=== PATIENT | male | born 1990 | race Caucasian/White ===

== ENCOUNTER 2018-06-10 03:37 | Emergency (ER) | payer MEDICAID, SELFPAY ==
[2018-06-10 03:38] VITALS: BP 155/96; PULSE 80; RESP 16; TEMP 36.2; O2SAT 99; BMI 24.3
--- NOTE | 2018-06-10 03:53 | ED.DCSUM_ITS ---
- ER Visit Summary Date of Service: 06/10/18 Chief Complaint: Sinus headache History of Present Illness: The patient is a 28 M with a sinus headache. This has been going on for several days. He has been taking Augmentin, prednisone, and promethazine with minimal relief. He completed the prednisone. He c ontinues to have congestion, headache, decreased hearing, and trouble concentrating. Denies fevers, vision changes, facial droop, neck rigidity, trouble swallowing, trouble talking, trouble breathing. Patient has also been taking ibuprofen with no relief. He also has a history of bipolar disorder and takes Seroquel, Lamictal, and BuSpar. Denies suicidal or homicidal thoughts. He is staying in a hotel currently. Physical Examination: Afebrile and vital signs are unremarkable. Patient appears nontoxic and in no acute distress. HEENT exam unremarkable except he does have a considerable amount of cerumen bilaterally. Ears otherwise unremarkable. Nontender. No lymphadenopathy. No meningeal signs. Good range of motion. Neck nontender. Heart regular rate and rhythm. Lungs clear. Abdomen soft. Moves all extremities. Cranial nerves grossly intact. Normal gait. No ataxia. GCS 15. Skin normal in color without rash, diaphoresis, or pallor. Test Results: None indicated based on his symptoms and exam. Emergency Department Course and Treatment: Patient treated with José-Synephrine nasal spray and Decadron. Will continue Augmentin. Also continue ibuprofen. He was given a meal and he was given Gatorade. He did advise me that if he did not get better, that he would lili me. I advised him that I hope he feels better, but that is his prerogative, and that will not change his level of care. Follow-up with primary care for recheck. Return for any new or worsening issues. Treatment Plan: As above Disposition: Discharge Impression: 1. Sinus headache This note was generated with [employer] dictation software. It may contain incorrect words, spelling, and punctuation that were not noted in review of the chart prior to signing ED Disposition - Plan for ED Patient: Chief Complaint: General Illness Instructions: ED Headache Sinus Referrals: NOT,DEFINED [NON-STAFF] -
--- NOTE | 2018-06-10 03:53 | ED.DEP ---
ED Disposition - Plan for ED Patient: Chief Complaint: General Illness Instructions: ED Headache Sinus Referrals: NOT,DEFINED [Primary Care Provider] -
[2018-06-10] MEDS: Phenylephrine 0.25% 15 ML NASAL.SRY 2 SPRAY NASAL (04:12)
== END 2018-06-10 04:27 | disposition home or self-care (01) ==
PROVIDERS: Emergency Provider Emergency Medicine
DX: R51 Headache (principal); H61.23 Impacted cerumen, bilateral; F31.9 Bipolar disorder, unspecified; Z72.0 Tobacco use; Z79.899 Other long term (current) drug therapy
CPT/HCPCS: 99284

== ENCOUNTER 2018-06-23 02:06 | Emergency (ER) | payer MEDICAID, SELFPAY ==
[2018-06-23 02:07] VITALS: BP 135/82; PULSE 125; RESP 24; TEMP 37.2; O2SAT 97; BMI 23.3
--- NOTE | 2018-06-23 02:29 | ED.DCSUM_ITS ---
History of Present Illness Chief Complaint: Chest Other Informant: Patient Onset: Hours - several Context: Sudden Onset - w/ coughing very hard Timing: Continuous Quality: ache/pain, like a pulled muscle Location: left lateral - anterior ribcage Current Severity: Severe Maximum Severity: Severe Worsened by: palpation, coughing Relieved by: breathing easy Associated Symptoms: cough, mucous congestion, ears popping x 2 mos Narrative: Patient states he is living on the [address] and has had an upper respiratory infection for the past 2 months. No shortness of breath until tonight when he coughed very hard and felt like he pulled a muscle in his left rib cage, making it harder to breathe, but no true dyspnea. Occasionally gets some mild pleuritic discomfort in his right upper lung. No leg pain or swelling, immobilization, recent long travel, history of DVT or PE. Past Medical History - Allergies and Home Meds Allergies/Adverse Reactions: Allergies No Known Allergies Allergy (Verified 06/10/18 03:38) Primary Care Physician: Care Physician,No Primary [Primary Care Provider] - Past Medical History: None Smoking Status: Current every day smoker Review of Systems General: Denies: Chills, Fever Eyes: Denies: Visual changes - bilaterally, Diplopia ENT: Reports: Bilateral ear pain - Intermittently, Rhinorrhea. Denies: Sore throat Cardiovascular: Reports: Chest pain Respiratory: Reports: Cough, Sputum - Was green, now alegria Gastrointestinal: Denies: Abdominal pain, Nausea, Vomiting Musculoskeletal: Denies: Swelling, Extremity Pain Skin: Denies: Rash, Wounds Physical Exam Vital Signs/Narrative: Vital Signs Temp Pulse Resp BP Pulse Ox 06/23/18 02:07 99.0 F 125 H 24 H 135/82 H 97 Inital Vital Signs reviewed: Yes General: Well nourished, Well developed, - - Well-appearing, NAD. Conversational in full sentences. Head: Normocephalic, Atraumatic Eyes: Perrl, EOMI ENT: Moist mucous membranes, No rhinorrhea, TM's clear - Hard cerumen obscures most of TMs bilaterally. EACs normal bilaterally otherwise., - - Posterior oropharynx erythematous, otherwise normal. Negative for: Sinus tenderness Neck: Supple, Nontender, No lymphadenopathy Cardiovascular: Regular rate, Regular rhythm, No murmurs. Negative for: Tach ycardia - On my exam although tachycardic in triage Respiratory: No distress, CTA bilaterally, Chest tenderness - Left anterolateral lower rib cage. No crepitance or subcutaneous emphysema or evidence of trauma Abdomen: Soft, Nontender, Nondistended, Normal bowel sounds Extremities: Nontender, No edema Skin: Normal color, No rash Neurological: Alert, Oriented x3, Cranial nerves II-XII grossly intact, Normal Strength, Normal Sensation Psychological: Normal affect Diagnostic/Tx/Re-eval - Medical Decision Making Lungs are clear, not hypoxic I do not think he needs a chest x-ray. I think giv en 2 months of symptoms it is reasonable to treat him with a broad-spectrum antibiotic. Prescribed doxycycline and given an injection of Toradol here for his musculoskeletal chest wall pain. He is comfortable with that plan. ED Disposition - Plan for ED Patient: Disposition: Home or Assisted Living Chief Complaint: Chest Other Diagnosis: Acute bronchitis with bronchospasm, Muscle strain of chest wall Instructions: ED Strain Chest Wall, Acute Bronchitis Prescriptions: Doxycycline 100 mg PO BID #20 cap Referrals: Ana Christianson [NON-STAFF] - 1 Week if not improving
[2018-06-23] MEDS: Ketorolac 60 MG/2 ML Vial IM (02:30)
[2018-06-23 03:04] VITALS: PULSE 117; O2SAT 97
--- OUTSIDE RECORDS SUMMARY | 2018-08-16 02:21 | XMS RPT_ITS ---
:1990 Author Organization [place] Care Team Providers Name Role Phone Call, On Primary Care Unavailable Allison Rosas Attending Unavailable Call, On Primary Care Unavailable Dr. Bhavin Lozano Attending Unavailable PROVIDER, UNKNOWN Referring Unavailable No, PCP Primary Care Unavailable PROVIDER, UNKNOWN Attending Unavailable Blaise Olvera Attending Unavailable Primay Care Physicia, No Primary Care Unavailable Primay Care Physicia, No Primary Care Unavailable JIGNA CLARK Attending Unavailable Primay Care Physicia, No Primary Care Unavailable Gregorio Vance Attending Unavailable PROBLEMS PROBLEMS DATE TYPE CONDITION / CODE ATTENDING STATUS SOURCE 10/07/2017 Admitting Pain in right knee Unknown Active [facility] Diagnosis / M25.561(ICD-10) System Repository 10/07/2017 Admitting Other and Unknown Active [facility] Diagnosis unspecified System ovrexrtn or strnous Repository move/pstr, init / X50.9XXA(ICD-10) 10/07/2017 Admitting Nicotine Unknown Active [facility] Diagnosis dependence, System unspecified, Repository uncomplicated / F17.200(ICD-10) 10/07/2017 Admitting Pain in unspecified Unknown Active [facility] Diagnosis knee / System M25.569(ICD-10) Repository PROCEDURES PROCEDURES No Procedure Records FoundRESULTS RESULTS ED.PDOC Observed: 07/09/2018 Status: F Source: [place] 12:46 AM [facility] REPOSITORY JEFFREY ASIF II Male [id number] Attending provider: IMCHAEL HIDALGO ER [id number] Bhavin Lozano 1990 28 DOS: 07/09/18 Hx/Exam - History of Present Illness Chief Complaint: CHEST PAIN Symptom Duration: Month(s) (-) Intensity: mild-moderate Episode Frequency: intermittant Episode Duration: Few seconds Radiations: none Symptoms Improve with: staying still Symptoms Worse with: lifting or moving Additional Comments: Patient states that he has been having pain in the left side of his check stool shoulder and neck area for about a year. It comes and goes. It usually last for a few seconds to maybe a minute. It is not associated with dyspnea coughing diaphoresis nausea or vomiting. He was recently diagnosed with bronchitis about 2 months ago. He was treated with doxycycline. No x-ray was done then. Patient states that motion lifting or pulling things does bother it. Exertion does not. He has no family history of heart disease or end DVT or P. He does have a family history of cancer. This patient has now been losing weight. He has no night sweats. There is no exertional component. He has had no travel, surgeries, immobilization or personal history of DVT. He has no leg pain or swelling and no arm pain or swelling. He has been evaluated before for this. He was most recently evaluated here with negative chest x-ray EKG and blood work including Troponin. He states he is here because it is making nervous at this had been going on for so long. He also states that he is currently homeless and he would like something to eat. - Review of Systems Constitutional: Denies: Fever, Chills Eyes: Denies: Blurred Vision, Double Vision ENT: Denies: Nose Congestion, Mouth Pain Respiratory: Denies: Cough, Shortness of Breath, Hemoptysis, SOB with Excertion, Pleuritic Pain, Sputum, Wheezing Cardiovascular: Chest Pain. Denies: Palpitations, Light Headedness Gastrointestinal: Denies: Nausea, Vomiting, Abdominal Pain, Diarrhea Musculoskeletal: Neck Pain, Shoulder Pain. Denies: Back Pain Skin: Denies: Rash Neurological: Denies: Headache, Weakness, Numbness, Incoordination, Change in Speech, Confusion, Seizures Psychiatric: Anxiety - Past Medical History General History: Yes Anxiety, Yes Depression (clinical), Yes Mental Disorder (donte, anxiety d/o), Yes Migraine - Past Surgical History Surgical History: Yes Other (left thumb) - Social History Smoking Status: Current every day smoker (Counseled on the need to quit.) Hx Alcohol Use: Yes Living Conditions: Unknown - Physical Exam General Appearance: awake, alert, no apparent distress (Patient actually resting quietly on its right side sleeping when I walk in the room. He was easily aroused.) Eyes: conjunctivae clear Head, Ears, Nose, and Throat: pharynx normal, mucous membranes moist Neck: supple, no stridor, no masses, no bony tenderness, full ROM, other (Patient does have slight tenderness to the trapezius that lateral right base of the neck. However there are no skin changes or swelling.) Respiratory: lungs clear, no wheezes/rhonchi/rales, no respiratory distress, no accessory muscle use , chest wall tender, other (There is no pain with a deep breath. His lungs are completely clear. He does have a little chest wall tenderness but it is isolated to the mid lateral clavicular area on the right. It is really just below the clavicle or the pectoralis Major muscles it is tach. There is no swelling, mass or skin changes noted.) Cardiovascular: regular rate, rhythm, no murmur, no gallop, no rub, no JVD Abdomen/GI: non tender, soft, non-distended Back: no CVA tenderness, no vertebral tenderness Extremity: normal range of motion, non-tender, normal inspection, no pedal edema, no calf tenderness (There were no cords or edema. There is no tenderness in the arm. There is no distended veins. Peripheral pulses are normal. There is no asymmetry of arms or legs.) Neurologic: normal strength, normal sensation, no pronator drift, speech clear/fluent Psychiatric: oriented x3, anxious, other (When the patient is woken up he does appear to be anxious. He speaks very quickly. He is slightly pressured speech. He does frequently interrupt. He also changed the topics such as asking for food while we are in the middle of a conversation. He is not suicidal or homicidal. There is no indication of acute psychosis.) Skin Exam: warm/dry, normal color Lymphatic: no adenopathy EKG - EKG EKG Interpretation: Preliminary ED Interpretation (EKG shows a sinus rhythm with a rate of 97. There is no ectopy. There is no sign of acute STT change consistent with infarct or ischemia. There is nonspecific J point elevation in lead V2 which is new. WI interval, QR quaker, QTs here normal. EKG shows no marked changes from the EKG dated 07/04/2018.) Discharge Screen - Discharge Discharge Problem: Atypical chest pain Disposition: HOME/SELF CARE Condition: Good Prescriptions: Cyclobenzaprine [Flexeril] 1 tab PO TID #12 tab Naproxen [Naprosyn] 1 tab PO Q12H PRN PRN #10 tab PRN Reason: Referrals: Call,On [Primary Care Provider] - Iggy Glover [Family Provider] - <Electronically signed by Bhavin Lozano > Dictated By: Dr. Bhavin Lozano M.D. Dictated Date/Time:07/09/18 0046 Electronically Signed Date/Time: 07/09/18 0522 URINALYSIS Collected: 07/04/2018 Status: F Source: [place] 5:11 AM [facility] REPOSITORY Order Comment: What Is Urine Source? Clean Catch [place] TYPE CODE TESTS RESULT OUT OF REFERENCE UNITS RANGE LAB UCOL URINE COLOR Lt. Yellow LAB UAPP CLEAR URINE APPEARANCE Clear LAB UGL NEGATIVE URINE GLUCOSE -DIPSTICK Negative LAB UBIL NEGATIVE URINE BILIRUBIN - Negative DIPSTICK LAB UKET NEGATIVE URINE KETONE Negative LAB USG 1.003-1.035 URINE SPEC Normal GRAVITY, DIPSTICK <= 1.005 LAB UBL NEGATIVE URINE BLOOD Negative LAB UPH 5.0-9.0 URINE PH Normal 7.5 LAB UPRO NEGATIVE URINE PROTEIN - Negative DIPSTICK LAB UURO <=1.0 E.U./dL URINE UROBILINOGEN - 0.2 DIPSTICK LAB UNIT NEGATIVE URINE NITRITE - Negative DIPSTICK LAB ULE NEGATIVE URINE LEUK ESTERASE Negative Performed By: #### UA #### [address] [address] CHEST-2 VIEW Observed: 07/04/2018 Status: F Source: [place] 5:04 AM [facility] REPOSITORY JEFFREY ASIF II Male [id number] Ordering physician: Allison Rosas LOC:ER [id number] Attending physician: 1990 28 DOS: 07/04/18 Acc#: [id number] Exam/Proc: CHEST-2 VIEW Dept: RADIOLOGY INDICATION: Central back pain right arm pain, No additional HX received. TECHNIQUE: Frontal and lateral chest. COMPARISON: None Available. FINDINGS: The cardiomediastinal silhouette is normal in size. There is no consolidation r atelectasis in either lung. There are no pleural effusions. There is no pneumothorax. No acute osseous process. IMPRESSION: No acute pulmonary abnormality. Signed by Jose Elias Camejo MD REPORT SIGNATURE ON FILE Electronically Signed Date/Time: 07/04/18503 Dictated Date/time: 07/04/18503 CC: ED.PDOC Observed: 07/04/2018 Status: F Source: [place] 4:40 AM [facility] REPOSITORY JEFFREY ASIF II Male [id number] Attending provider: [facility] ER [id number] Allison Rosas 1990 DOS: 07/04/18 Hx/Exam - History of Present Illness Chief Complaint: CHEST PAIN Location: right upper Symptom Duration: Month(s) Intensity: mild-moderate Episode Frequency: intermittant Symptoms Improve with: none Symptoms Worse with: cough, movement Assoc Sxs/Pertinent Hx: recent bronchitits, on doxycycline - Review of Systems All Other Systems: Pertinent Positives in HPI, All Other Systems Negative Constitutional: Denies: Fever Respiratory: Cough, Dry. Denies: Shortness of Breath, Wheezing Cardiovascular: Chest Pain Neurological: Denies: Headache, Weakness - Past Medical History General History: Yes ADHD, Yes Anxiety, Yes Depression (clinical), Yes Mental Disorder (donte, anxiety d/o), Yes Migraine - Past Surgical History Surgical History: Yes Other (left thumb) - Social History Smoking Status: Current every day smoker Hx Alcohol Use: Yes Living Conditions: Friends - Physical Exam General Appearance: awake, alert, no apparent distress Eyes: PERRL, EOMI, conjunctivae clear Head, Ears, Nose, and Throat: mucous membranes moist Neck: supple, non-tender Respiratory: lungs clear, no wheezes/rhonchi/rales, no respiratory distress Cardiovascular: regular rate, rhythm Abdomen/GI: non tender, soft, non-distended Extremity: normal range of motion, other (tender right upper back, right shoulder, right upper chest ) Neurologic: no motor/sensory deficits, normal gait, normal strength Psychiatric: oriented x3, anxious Skin Exam: warm/dry - Source of History Source of History: Nursing Notes/Vital Signs/Triage Reviewed and Agree, Additional Hx from Relatives , Old Medical Records Reviewed Note(s) - Physician Notes Additional Notes, See Orders for Details: 07/04/18 05:46 Chest x-ray and labs are unremarkable. Patient is slightly tachycardic around 110 being very anxious and agitated. I believe that a craze relate this. His pain has been going on since August on and . I do not believe there is anything cardiac or pulmonary. EKG - EKG EKG Interpretation: Preliminary ED Interpretation (sinus rate 112) Discharge Screen - Discharge Discharge Problem: Atypical chest pain Disposition: HOME/SELF CARE Condition: Good Instructions: DI for Atypical Chest Pain Referrals: Call,On [Primary Care Provider] - Ana Lozano [ACTIVE] - <Electronically signed by Allison Rosas > Dictated By: Dr. Allison Rosas Dictated Date/Time:07/04/18 0440 Electronically Signed Date/Time: 07/04/18 0548 COMPREHENSIVE METABOLIC Collected: 07/04/2018 Status: F Source: [place] PANEL 4:30 AM [facility] REPOSITORY TYPE CODE TESTS RESULT OUT OF REFERENCE UNITS RANGE LAB GLU 70-100 mg/dL GLUCOSE Normal 96 LAB BUN 7-18 mg/dL BUN Normal 11.0 LAB CRE 0.4-1.2 mg/dL CREATININE Normal 0.90 LAB NA 136-147 MMOL/L SODIUM Normal 137 LAB K 3.6-5.2 MMOL/L Low POTASSIUM 3.3 LAB CL 98-107 MMOL/L CHLORIDE Normal 102 LAB CO2 21-32 MMOL/L CARBON Normal DIOXIDE 25.0 LAB GAP 11-23 ANION GAP Normal 12.8 LAB KIA 8.5-10.1 mg/dL CALCIUM Normal 9.0 LAB TP 6.0-8.3 g/dL TOTAL Normal PROTEIN 8.3 LAB ALB 3.0-5.0 g/dL ALBUMIN Normal 3.9 LAB GLOB 2.5-4.6 g/dl GLOBULIN Normal 4.4 LAB A/G 1.1-1.8 Low ALB/GLOB RATIO 0.9 LAB TBIL 0-1.0 mg/dL Normal BILIRUBIN,TOTAL 0.3 LAB SGOT 9-34 U/L SGOT/AST Normal 22 LAB SGPT 12-78 U/L SGPT/ALT Normal 41 LAB ALK 45-117 U/L ALK Normal PHOSPHATASE 96 LAB GFR mL/min GFR > 60.0 LAB GFRAA mL/min GFR AM > 60.0 Result Comment: THE NORMAL LEVEL OF GFR VARIES ACCORDING TO AGE, SEX, AND BODY SIZE. A GFR LEVEL OF LESS THAN 60 ML/MIN REPRESENTS LOSS OF THE ADULT LEVEL OF NORMAL KIDNEY FUNCTION. Performed By: #### TONEY GAONA #### [address] [address] TROPONIN Collected: 07/04/2018 Status: F Source: [place] 4:30 AM [facility] REPOSITORY TYPE CODE TESTS RESULT OUT OF RANGE REFERENCE UNITS LAB TRO 0-0.1 ng/mL Normal TROPONIN < 0.015 Result Comment: Troponin Reference Range 0.0 - 0.045 ng/ml Negative 0.046 - 0.1 ng/ml Intermediate Risk 0.11 - 0.59 ng/ml High Risk Greater than or equal to 0.6 ng/ml - Indicative of Myocardial Damage Performed By: #### [place], [place] #### [address] [address] CBC WITH AUTO DIFF Collected: 07/04/2018 Status: F Source: [place] 4:30 AM [facility] REPOSITORY TYPE CODE TESTS RESULT OUT OF RANGE REFERENCE UNITS LAB WBC 4.0-11.0 K/uL High WHITE BLOOD COUNT 14.0 LAB RBC 4.40-6.30 M/uL RED BLOOD Normal COUNT 6.07 LAB HGB 14.0-18.0 g/dL HEMOGLOBIN Normal 15.4 LAB HCT 41.0-53.0 % HEMATOCRIT 46.7 LAB MCV 80-97 fL Low MEAN CELL VOLUME 76.9 LAB MCH 26.0-32.0 pg Low MEAN CORPUSCULAR HGB 25.3 LAB MCHC 31.0-36.0 g/dL MEAN Normal CORPUSCULAR HGB 32.9 CONC LAB RDW 11.0-15.5 % RED CELL Normal DISTRI WIDTH 13.7 LAB PLT 140-450 K/uL High PLATELET COUNT 462 LAB MPV 6.4-10.5 fl MEAN Normal PLATELET VOLUME 7.4 LAB GR% 42-80 % GRAN % Normal 64.5 LAB LY% 16-48 % LYMPH % Normal 26.3 LAB MO% 3-9 % MONO % Normal 8.0 LAB EO% 0-8 % EOS % Normal 0.7 LAB BASO% 0-2 % BAS0 % Normal 0.50 LAB GR# 2.2-9.1 K/uL GRAN # Normal 9.0 LAB LY# 1.0-4.0 K/uL LYMPH # Normal 3.7 LAB MO# 0.1-1.7 K/uL MONO # Normal 1.1 LAB EO# 0.0-1.80 K/uL EOS # Normal 0.1 LAB BA# 0-0.1 K/ul BASO # Normal 0.1 Performed By: #### DIFF (MANUAL), CBC #### [place] [address] [address] DIFFERENTIAL Collected: 07/04/2018 Status: F Source: [place] 4:30 AM [facility] REPOSITORY TYPE CODE TESTS RESULT OUT OF REFERENCE UNITS RANGE LAB TCC #CELLS TOTAL 100 CELLS COUNTED LAB POLY 42-80 % 56 Normal NEUTROPHILS LAB LYMPH 16-48 % LYMPH 35 Normal LAB MON 3-9 % MONOCYTE 6 Normal LAB EOS 0-8 % 3 Normal EOSINOPHIL LAB RM RBC MORPHOLOGY ESSENTIALLY NORMAL LAB TOX TOXIC SLIGHT GRANULATION LAB IG IMMATURE NONE GRANS SEEN Performed By: #### DIFF (MANUAL), CBC #### [place] [address] [place] [address] 12 LEAD ELECTROCARDIOGRAM Observed: 06/27/2018 Status: F Source: [place] 2:29 PM [facility] REPOSITORY [facility] Cardiovascular Services [address] [place] [address] 12 Lead EKG 06/25/18 0347 MR#: [id number] Acct: [id number] Name: JEFFREY ASIF II Rep #: [id number] : 1990 28 From: Hood Pulido MD Attending Dr: Status: DEP ER Ordering Dr: Gregorio Vance MD Date: 06/25/18 Location: ED Sex: M C Admitted: Test Reason : [facility] Blood Pressure : / mmHG Vent. Rate : 103 BPM Atrial Rate : 103 BPM P-R Int : 146 ms QRS Dur : 086 ms QT Int : 332 ms P-R-T Axes : 067 095 059 degrees QTc Int : 434 ms Sinus tachycardia Rightward axis Borderline ECG Confirmed by HOOD PULIDO MD ([id number]), online content editor GARTH DIXON ([id number]) on 06/27/2018 2:29:02 PM Referred By: GABE Confirmed By:HOOD PULIDO MD 06/27/18 1429 Date Hood Pulido MD CC: No Primary Care Physician; Gregorio Vance MD Signed EMERGENCY DEPARTMENT Observed: 06/25/2018 Status: F Source: [place] SUMMARY 4:15 AM [facility] REPOSITORY [facility] Medical Records Department [address] [place] [address] Emergency Department Summary 06/25/18 0413 MR#: [id number] Acct: [id number] Name: JEFFREY ASIF II Rep #: [id number] : 1990 28 From: Gergorio Vance MD PCP: Care Physician, No Primary Status: REG ER - ER Visit Summary Date of Service: 06/25/18 Chief Complaint: Suicidal History of Present Illness: The patient is a 28 M who presents with suicidal ideation. He is homeless. He states that he was previously staying with someone he had met at [facility]. He has also been at the [facility]. He states that due to some problems with them letting him and he is now homeless over the last 3 weeks. He reports multiple stressors. He reports suicidal ideation. He states 2 days ago he had tied a belt around [place] and intended to hang himself but someone talked him out of it. Physical Examination: Afebrile vitals unremarkable No distress Heart regular rate and rhythm Lungs are clear Abdomen soft Patient endorses suicidal ideation Patient has superficial lacerations of the anterior left forearm which are about 8 cm in length x2 Test Results: CBC BMP hepatic function unremarkable. EKG shows normal sinus rhythm. Alcohol normal. Urine drug screen positive for marijuana. Emergency Department Course and Treatment: Patient evaluated by crisis and will be transferred to the [facility]. Treatment Plan: [] Disposition: Transfer Impression: Suicidal ideation This note was generated with [employer] dictation software. It may contain incorrect words, spelling, and punctuation that were not noted in review of the chart prior to signing ED Disposition - Plan for ED Patient: Chief Complaint: Suicidal Referrals: Care Physician,No Primary [Primary Care Provider] - What to do if you have Problems For any increased pain, shortness of breath, bleeding, nausea or vomiting, chest pain, or any unexpected problems, contact your Primary Care Provider. Call [facility] ([phone]) or report to the closest Emergency Room. Call 911 if necessary. 06/25/18 0415 <Electronically signed by Gregorio Vance MD> Date Gregorio Vance MD Cosigner Signature (If Indicated): Date CC: No Primary Care Physician CBC W/DIFF, AUTOMATED Collected: 06/24/2018 Status: F Source: [place] 11:44 PM [facility] REPOSITORY TYPE CODE TESTS RESULT OUT OF RANGE REFERENCE UNITS LAB L100.1000 4.4-11.0 K/mm3 Normal WBC 10.9 LAB L100.1200 4.6-6.2 M/mm3 Normal RBC 5.00 LAB L100.1300 13.0-16.5 g/dl Normal HGB 13.3 LAB L100.1400 40-54 % Low HCT 39.4 LAB L100.1500 80-94 fL Low MCV 78.8 LAB L100.1600 27.0-32.0 pg Low MCH 26.6 LAB L100.1700 32-36 g/gl Normal MCHC 33.8 LAB L100.1810 11.6-14.6 % Normal RDW CV 13.7 LAB L100.1820 35.1-43.9 fl Normal RDW SD 39.0 LAB L100.1900 150-450 K/mm3 Normal PLT 285 LAB L100.2000 6.2-12.0 fl Normal MPV 9.9 LAB L100.2100 47-70 % Normal NEUT% 66.0 LAB L100.2200 19-41 % Low LY% 18.1 LAB L100.2300 0-10 % High MONO% 13.3 LAB L100.2400 0-5 % Normal EO% 1.8 LAB L100.2500 0-1 % Normal BASO% 0.5 LAB L100.2550 0.0-0.9 % Normal IM GRAN % 0.300 Result Comment: IG% - Immature Granulocytes (promyelocytes, myelocytes and metamyelocytes) > 1% indicates that a LEFT SHIFT is Present. LAB L100.2620 2.0-7.7 X10 3/uL Normal Absolute Neut 7.2 LAB L100.2720 0.83-4.51 X10 3/ul Normal Absolute Lymph 1.98 Performed By: #### L100.0100 #### [facility] [address] [place], [address] BASIC METABOLIC Collected: 06/24/2018 Status: F Source: [place] PRO[place] ([facility]) 11:44 PM [facility] REPOSITORY TYPE CODE TESTS RESULT OUT OF RANGE REFERENCE UNITS LAB L501.0100 74-106 mg/dL Normal GLU 81 Result Comment: Please note revised GLUCOSE reference range effective 2017. LAB L501.1000 7-18 mg/dL Normal BUN 12 LAB L501.1100 0.70-1.30 mg/dL Low CREAT,SERUM 0.60 Result Comment: The validity of the calculated GFR AND GFRAA in patients over 70 years has not been determined. Clinical correlation is essential. LAB L501.1110 >60 mL/min Normal EST GFR 167 Result Comment: Non- GFR Calc LAB L501.1115 >60 mL/min Normal EST GFR - AA 202 Result Comment: GFR Calc LAB L501.1255 ml/min Normal Estimated CRCL 180.02 LAB L501.1300 10-20 RATIO BUN/CRE Normal 19.9 LAB L501.2200 8.5-10 mg/dL Low .1 CA 8.4 LAB L501.5300 136-14 mmol/L 5 NA Normal 141 LAB L501.5600 3.5-5. mmol/L 1 K Normal 3.9 LAB L501.5900 98-107 mmol/L High CL 108 LAB L501.6100 21.0-3 mmol/L 2.0 CO2 Normal 27.0 LAB L501.6200 5-15 GAP Normal 6 Performed By: #### L500.2500 #### [facility] [address], [place], [id number] ALCOHOL, BLOOD Collected: 06/24/2018 Status: F Source: [place] (MEDICAL)-SERUM 11:44 PM [facility] REPOSITORY TYPE CODE TESTS RESULT OUT OF RANGE REFERENCE UNITS LAB L501.9100 mg/dL Normal SERUM 40.0 ETOH Result Comment: The serum:whole blood ethanol ratio is approximately 1.14 and varies slightly with hematocrit. Medical Alcohol reference interval and critical value in non-tolerant individuals; 50 - 100 Impairment 100 Intoxication 100 - 250 Severe Poisoning 250 - 400 Deep/possible fatal coma Performed By: #### L501.9100 #### [facility] [address], [place], [id number] LIVER PROFILE Collected: 06/24/2018 Status: F Source: [place] 11:44 PM [facility] REPOSITORY TYPE CODE TESTS RESULT OUT OF RANGE REFERENCE UNITS LAB L501.1500 6.4-8.2 g/dL Normal T PROT 6.7 LAB L501.1800 3.2-5.0 g/dL Low ALB 2.9 LAB L501.1950 2.2-4.2 g/dL Normal GLOB 3.8 LAB L501.4100 15-37 U/L Normal AST 24 LAB L501.4305 45-117 U/L Normal ALK P 61 LAB L501.4405 16-61 U/L Normal ALT 28 LAB L501.4600 0.20-1.00 mg/dL Normal T BILI 0.20 LAB L501.4700 0.00-0.30 mg/dL Normal D BILI 0.09 Performed By: #### L500.3400 #### [facility] [address] [place], [address] URINE DRUG SCREEN Collected: 06/24/2018 Status: F Source: [place] (VISTA) 11:29 PM [facility] TYPE CODE TESTS RESULT OUT OF RANGE REFERENCE UNITS LAB L505.0075 TO BE Normal CONFIRMED Result Comment: CONFIRMATORY TESTING FOR ALL POSITIVE URINE DRUG SCREEN RESULTS WILL ONLY BE SENT OUT UPON PHYSICIAN ORDER. VISTA Urine Drug Screen methods provide only preliminary analytical test results. A more specific alternate chemical method must be used in order to obtain a confirmed analytical result. Gas chromatography/mass spectrometery (GC/MS) is the preferred confirmatory method. Clinical consideration and professional judgement should be applied to any drug of abuse test result, particularly when preliminary positive results are used. URINE TCA TESTING MUST BE ORDERED SEPARATELY. USE TEST MNEMONIC: [facility] LAB L505.5005 VISTA UDS PH 5 Normal LAB L505.5015 <1000 ng/mL AMPHETAMINES Normal NEGATIVE LAB L505.5025 < 200 ng/mL BARBITIURATES Normal NEGATIVE LAB L505.5035 < 200 ng/mL BENZODIAZIPINE Normal NEGATIVE LAB L505.5045 < 300 ng/mL COCAINE Normal NEGATIVE LAB L505.5055 < 500 ng/mL ECSTACY Normal NEGATIVE LAB L505.5065 < 300 ng/mL METHADONE Normal NEGATIVE LAB L505.5075 < 300 ng/mL OPIATES Normal NEGATIVE LAB L505.5085 < 25 ng/mL PCP Normal NEGATIVE LAB L505.5095 < 50 High ng/mL THC POSITIVE Performed By: #### L505.5000 #### [facility] [address] [place], [address] EMERGENCY DEPARTMENT Observed: 06/23/2018 Status: F Source: [place] SUMMARY 2:31 AM [facility] REPOSITORY [facility] Medical Records Department [address] [place] [address] Emergency Department Summary 06/23/18 0225 MR#: [id number] Acct: [id number] Name: JEFFREY ASIF II Rep #: [id number] : 1990 28 From: Jigna Clark MD PCP: Care Physician, No Primary Status: PRE ER History of Present Illness Chief Complaint: Chest Other Informant: Patient Onset: Hours - several Context: Sudden Onset - w/ coughing very hard Timing: Continuous Quality: ache/pain, like a pulled muscle Location: left lateral - anterior ribcage Current Severity: Severe Maximum Severity: Severe Worsened by: palpation, coughing Relieved by: breathing easy Associated Symptoms: cough, mucous congestion, ears popping x 2 mos Narrative: Patient states he is living on the [address] and has had an upper respiratory infection for the past 2 months. No shortness of breath until tonight when he coughed very hard and felt like he pulled a muscle in his left rib cage, making it harder to breathe, but no true dyspnea. Occasionally gets some mild pleuritic discomfort in his right upper lung. No leg pain or swelling, immobilization, recent long travel, history of DVT or PE. Past Medical History - Allergies and Home Meds Allergies/Adverse Reactions: Allergies No Known Allergies Allergy (Verified 06/10/18 03:38) Primary Care Physician: Care Physician,No Primary [Primary Care Provider] - Past Medical History: None Smoking Status: Current every day smoker Review of Systems General: Denies: Chills, Fever Eyes: Denies: Visual changes - bilaterally, Diplopia ENT: Reports: Bilateral ear pain - Intermittently, Rhinorrhea. Denies: Sore throat Cardiovascular: Reports: Chest pain Respiratory: Reports: Cough, Sputum - Was green, now alegria Gastrointestinal: Denies: Abdominal pain, Nausea, Vomiting Musculoskeletal: Denies: Swelling, Extremity Pain Skin: Denies: Rash, Wounds Physical Exam Vital Signs/Narrative: Vital Signs 06/23/18 02:07 99.0 F 125 H 24 H 135/82 H 97 Inital Vital Signs reviewed: Yes General: Well nourished, Well developed, - - Well-appearing, NAD. Conversational in full sentences. Head: Normocephalic, Atraumatic Eyes: Perrl, EOMI ENT: Moist mucous membranes, No rhinorrhea, TM's clear - Hard cerumen obscures most of TMs bilaterally. EACs normal bilaterally otherwise., - - Posterior oropharynx erythematous, otherwise normal. Negative for: Sinus tenderness Neck: Supple, Nontender, No lymphadenopathy Cardiovascular: Regular rate, Regular rhythm, No murmurs. Negative for: Tachycardia - On my exam although tachycardic in triage Respiratory: No distress, CTA bilaterally, Chest tenderness - Left anterolateral lower rib cage. No crepitance or subcutaneous emphysema or evidence of trauma Abdomen: Soft, Nontender, Nondistended, Normal bowel sounds Extremities: Nontender, No edema Skin: Normal color, No rash Neurological: Alert, Oriented x3, Cranial nerves II-XII grossly intact, Normal Strength, Normal Sensation Psychological: Normal affect Diagnostic/Tx/Re-eval - Medical Decision Making Lungs are clear, not hypoxic I do not think he needs a chest x-ray. I think given 2 months of symptoms it is reasonable to treat him with a broad-spectrum antibiotic. Prescribed doxycycline and given an injection of Toradol here for his musculoskeletal chest wall pain. He is comfortable with that plan. ED Disposition - Plan for ED Patient: Disposition: Home or Assisted Living Chief Complaint: Chest Other Diagnosis: Acute bronchitis with bronchospasm, Muscle strain of chest wall Instructions: ED Strain Chest Wall, Acute Bronchitis Prescriptions: Doxycycline 100 mg PO BID #20 cap Referrals: Ana Christianson [NON-STAFF] - 1 Week if not improving What to do if you have Problems For any increased pain, shortness of breath, bleeding, nausea or vomiting, chest pain, or any unexpected problems, contact your Primary Care Provider. Call [facility] ([phone]) or report to the closest Emergency Room. Call 911 if necessary. 06/23/18 0231 <Electronically signed by Jigna Clark MD> Date Jigna Clark MD Cosigner Signature (If Indicated): Date CC: No Primary Care Physician EMERGENCY DEPARTMENT Observed: 06/10/2018 Status: F Source: [place] SUMMARY 7:06 AM [facility] REPOSITORY [facility] Medical Records Department [address] [place] [address] Emergency Department Summary 06/10/18 0351 MR#: [id number] Acct: [id number] Name: JEFFREY ASIF II Rep #: [id number] : 1990 28 From: Blaise Olvera MD PCP: Care Physician, No Primary Status: DEP ER - ER Visit Summary Date of Service: 06/10/18 Chief Complaint: Sinus headache History of Present Illness: The patient is a 28 M with a sinus headache. This has been going on for several days. He has been taking Augmentin, prednisone, and promethazine with minimal relief. He completed the prednisone. He continues to have congestion, headache, decreased hearing, and trouble concentrating. Denies fevers, vision changes, facial droop, neck rigidity, trouble swallowing, trouble talking, trouble breathing. Patient has also been taking ibuprofen with no relief. He also has a history of bipolar disorder and takes Seroquel, Lamictal, and BuSpar. Denies suicidal or homicidal thoughts. He is staying in a hotel currently. Physical Examination: Afebrile and vital signs are unremarkable. Patient appears nontoxic and in no acute distress. HEENT exam unremarkable except he does have a considerable amount of cerumen bilaterally. Ears otherwise unremarkable. Nontender. No lymphadenopathy. No meningeal signs. Good range of motion. Neck nontender. Heart regular rate and rhythm. Lungs clear. Abdomen soft. Moves all extremities. Cranial nerves grossly intact. Normal gait. No ataxia. GCS 15. Skin normal in color without rash, diaphoresis, or pallor. Test Results: None indicated based on his symptoms and exam. Emergency Department Course and Treatment: Patient treated with José-Synephrine nasal spray and Decadron. Will continue Augmentin. Also continue ibuprofen. He was given a meal and he was given Gatorade. He did advise me that if he did not get better, that he would lili me. I advised him that I hope he feels better, but that is his prerogative, and that will not change his level of care. Follow-up with primary care for recheck. Return for any new or worsening issues. Treatment Plan: As above Disposition: Discharge Impression: 1. Sinus headache This note was generated with [employer] software. It may contain incorrect words, spelling, and punctuation that were not noted in review of the chart prior to signing ED Disposition - Plan for ED Patient: Chief Complaint: General Illness Instructions: ED Headache Sinus Referrals: NOT,DEFINED [NON-STAFF] - What to do if you have Problems For any increased pain, shortness of breath, bleeding, nausea or vomiting, chest pain, or any unexpected problems, contact your Primary Care Provider. Call [facility] ([phone]) or report to the closest Emergency Room. Call 911 if necessary. 06/10/18705 <Electronically signed by Blaise Olvera MD> Date Blaise Olvera MD Cosigner Signature (If Indicated): Date CC: No Primary Care Physician DISCHARGE INSTRUCTION Observed: 06/10/2018 Status: F Source: [place] 7:06 AM [facility] REPOSITORY [facility] Medical Records Department [address] [place] [address] Discharge Instruction 06/10/18 0353 MR#: [id number] Acct: [id number] Name: JEFFREY ASIF RONALD Rep #: [id number] : 1990 28 From: Blaise Olvera MD PCP: Care Physician, No Primary Status: [facility] ER ED Disposition - Plan for ED Patient: Chief Complaint: General Illness Instructions: ED Headache Sinus Referrals: NOT,DEFINED [Primary Care Provider] - What to do if you have Problems For any increased pain, shortness of breath, bleeding, nausea or vomiting, chest pain, or any unexpected problems, contact your Primary Care Provider. Call [facility] ([phone]) or report to the closest Emergency Room. Call 911 if necessary. 06/10/18705 <Electronically signed by Blaise Olvera MD> Date Blaise Olvera MD Cosigner Signature (If Indicated): Date CC: No Primary Care Physician PROGRESS Observed: 06/06/2018 Status: COMPLETED Source: [place] 11:[address] [facility] REPOSITORY HNO ID: [id number] Author: Cheyanne De Dios (iN) Carlitos Service: (none) Author Type: Nurse Practitioner Type: Progress Notes Filed: 06/06/2018 11:40 AM Note Text: Subjective HPI Patient presents with: Acute Visit:sinus congestion, pain, headaches, cough, fever/chills x 3 weeks, worsening yesterday Current daily smoker. Advil cold/sinus medication otc with minimal relief. Review of Systems Constitutional: Positive for chills and fever. Negative for malaise/fatigue. HENT: Positive for congestion, sinus pain and sore throat. Negative for ear pain. Eyes: Negative for discharge and redness. Respiratory: Positive for cough. Negative for hemoptysis, sputum production, shortness of breath and wheezing. Gastrointestinal: Negative for abdominal pain, diarrhea, nausea and vomiting. Skin: Negative for rash. Neurological: Positive for headaches. No past medical history on file. No past surgical history on file. ALLERGIES Patient has no known allergies. MEDICATIONS QUEtiapine (SEROQUEL) 200 mg tablet Take 200 mg by mouth daily at bedtime. lamoTRIgine ER (LAMICTAL XR) 50 mg 24 hr tablet Take 50 mg by mouth daily at bedtime. busPIRone (BUSPAR) 10 mg tablet Take 10 mg by mouth three times daily. As needed amoxicillin-clavulanic acid (AUGMENTIN) 875-125 mg per tablet Take 1 tablet by mouth twice daily for 10 days. predniSONE (DELTASONE) 20 mg tablet Take 2 tablets by mouth once daily for 5 days. Take daily with food. Sqbemqzzjrnmbhu-Msadvzjty-QG (BROMFED DM) 2-30-10 mg/5 mL syrup Take 10 mL by mouth four times daily as needed for up to 7 days. No family history on file. Social History Substance Use Topics - Smoking status: Current Every Day Smoker - Smokeless tobacco: Current User - Alcohol use Not on file Objective Physical Exam Constitutional: He is well-developed, well-nourished, and in no distress. HENT: Head: Normocephalic. Right Ear: Tympanic membrane, external ear and ear canal normal. Left Ear: Tympanic membrane, external ear and ear canal normal. Nose: Mucosal edema and rhinorrhea present. Right sinus exhibits maxillary sinus tenderness and frontal sinus tenderness. Left sinus exhibits maxillary sinus tenderness and frontal sinus tenderness. Mouth/Throat: Posterior oropharyngeal erythema (PND) present. Eyes: Conjunctivae are normal. Neck: Normal range of motion. Neck supple. Cardiovascular: Normal rate, regular rhythm and normal heart sounds. Pulmonary/Chest: Effort normal and breath sounds normal. No respiratory distress. He has no wheezes. Abdominal: Soft. He exhibits no distension. There is no tenderness. Skin: Skin is warm and dry. No rash noted. Nursing note and vitals reviewed. ASSESSMENT/PLAN: 1. Sinobronchitis - ICD9: 473.9, 490, ICD10: J32.9, J40 - Will begin treatment with Augmentin 875 mg PO BID for 10 days - The patient should also be given OTC decongestants prn, OTC cough and cold meds as needed, warm salt water gargles, throat lozenges and/or OTC throat spray as needed and nasal saline gtts and suction prn for the first 5-7 days of treatment. - Supportive care with plenty of fluids, rest, and analgesia prn. - Follow up in 3-5 days if symptoms persist or worsen. Prescription instructions reviewed with patient as applicable. Patient advised if symptoms do not improve or if symptoms worsen sooner, to contact their primary care physician. Potential red flag symptoms discussed with the patient. Reviewed appropriate action plan to take if red flag symptoms occur. Patient agreeable to treatment plan. Cheyanne Clifford APRN.DUKE CNOV Observed: 06/06/2018 Status: COMPLETED Source: [place] 10:45 AM [facility] REPOSITORY Office Visit (WSTR) JEFFREY ASIF ([id number]) 1990 M Date Time Provider Department 06/06/18 10:45 AM CHEYANNE CLIFFORD (DUCT LAYER HELPER) [facility] During your visit today, we recorded the following information about you: Temperature Pulse Respiration Blood pressure 98.1 degrees 114/minute 20/minute 95/67 Weight 77.1 kg Cheyanne Clifford APRN.CNP 06/06/2018 11:40 AM Signed Subjective HPI Patient presents with: Acute Visit:sinus congestion, pain, headaches, cough, fever/chills x 3 weeks, worsening yesterday Current daily smoker. Advil cold/sinus medication otc with minimal relief. Review of Systems Constitutional: Positive for chills and fever. Negative for malaise/fatigue. HENT: Positive for congestion, sinus pain and sore throat. Negative for ear pain. Eyes: Negative for discharge and redness. Respiratory: Positive for cough. Negative for hemoptysis, sputum production, shortness of breath and wheezing. Gastrointestinal: Negative for abdominal pain, diarrhea, nausea and vomiting. Skin: Negative for rash. Neurological: Positive for headaches. No past medical history on file. No past surgical history on file. ALLERGIES Patient has no known allergies. MEDICATIONS QUEtiapine (SEROQUEL) 200 mg tablet Take 200 mg by mouth daily at bedtime. lamoTRIgine ER (LAMICTAL XR) 50 mg 24 hr tablet Take 50 mg by mouth daily at bedtime. busPIRone (BUSPAR) 10 mg tablet Take 10 mg by mouth three times daily. As needed amoxicillin-clavulanic acid (AUGMENTIN) 875-125 mg per tablet Take 1 tablet by mouth twice daily for 10 days. predniSONE (DELTASONE) 20 mg tablet Take 2 tablets by mouth once daily for 5 days. Take daily with food. Kaoshgekcijurlx-Mwmxqakjc-YG (BROMFED DM) 2-30-10 mg/5 mL syrup Take 10 mL by mouth four times daily as needed for up to 7 days. No family history on file. Social History Substance Use Topics - Smoking status: Current Every Day Smoker - Smokeless tobacco: Current User - Alcohol use Not on file Objective Physical Exam Constitutional: He is well-developed, well-nourished, and in no distress. HENT: Head: Normocephalic. Right Ear: Tympanic membrane, external ear and ear canal normal. Left Ear: Tympanic membrane, external ear and ear canal normal. Nose: Mucosal edema and rhinorrhea present. Right sinus exhibits maxillary sinus tenderness and frontal sinus tenderness. Left sinus exhibits maxillary sinus tenderness and frontal sinus tenderness. Mouth/Throat: Posterior oropharyngeal erythema (PND) present. Eyes: Conjunctivae are normal. Neck: Normal range of motion. Neck supple. Cardiovascular: Normal rate, regular rhythm and normal heart sounds. Pulmonary/Chest: Effort normal and breath sounds normal. No respiratory distress. He has no wheezes. Abdominal: Soft. He exhibits no distension. There is no tenderness. Skin: Skin is warm and dry. No rash noted. Nursing note and vitals reviewed. ASSESSMENT/PLAN: 1. Sinobronchitis - ICD9: 473.9, 490, ICD10: J32.9, J40 - Will begin treatment with Augmentin 875 mg PO BID for 10 days - The patient should also be given OTC decongestants prn, OTC cough and cold meds as needed, warm salt water gargles, throat lozenges and/or OTC throat spray as needed and nasal saline gtts and suction prn for the first 5-7 days of treatment. - Supportive care with plenty of fluids, rest, and analgesia prn. - Follow up in 3-5 days if symptoms persist or worsen. Prescription instructions reviewed with patient as applicable. Patient advised if symptoms do not improve or if symptoms worsen sooner, to contact their primary care physician. Potential red flag symptoms discussed with the patient. Reviewed appropriate action plan to take if red flag symptoms occur. Patient agreeable to treatment plan. Cheyanne Clifford, WILLIAM.BOW REHAIRER Referring Provider: SELF [200] Allergies As of Date: 06/06/2018 (No Known Allergies) Date Reviewed: 06/06/2018 Reviewed by: Cheyanne De Dios (Ni) Carlitos - Fully Assessed Reason for Visit: Acute Visit [896] Cmt: intermittent sinus infection x 3 weeks Reason For Visit History Recorded Primary Visit Diagnosis:Sinobronchitis [J32.9, J40] Order(s):amoxicillin-clavulanic acid (AUGMENTIN) 875-125 mg per tabletTake 1 tablet by mouth twice daily for 10 days.Disp: 20 tabletRfl: 0 predniSONE (DELTASONE) 20 mg tabletTake 2 tablets by mouth once daily for 5 days. Take daily with food.Disp: 10 tabletRfl: 0 Mjdnbcbmawvyiwq-Cscaafrie-PH (BROMFED DM) 2-30-10 mg/5 mL syrupTake 10 mL by mouth four times daily as needed for up to 7 days.Disp: 240 mLRfl: 0 Prescriptions as of 06/06/2018 Sig: QUETIAPINE 200 MG TABLET Take 200 mg by mouth daily at* LAMOTRIGINE ER 50 MG TABLET,E* Take 50 mg by mouth daily at * BUSPIRONE 10 MG TABLET Take 10 mg by mouth three steven* AMOXICILLIN 875 MG-POTASSIUM * Take 1 tablet by mouth twice * PREDNISONE 20 MG TABLET Take 2 tablets by mouth once * BROMPHENIRAMINE-PSEUDOEPHEDRI* Take 10 mL by mouth four time* Problem List As Of Date: 06/06/2018 (None) Prescriptions ordered this encounter Disp Refills Start End AMOXICILLIN 875 MG-POTASSIUM CLAVULA* 20 t* 0 06/06/2018 06/16/2018 Route: ORAL Sig: Take 1 tablet by mouth twice daily for 10 days. PREDNISONE 20 MG TABLET 10 t* 0 06/06/2018 06/11/2018 Route: ORAL Sig: Take 2 tablets by mouth once daily for 5 days. Take daily with food. CQIOEGLSMELQPIX-YCNPGFICKJCVZQH-LX 2* 240 * 0 06/06/2018 06/13/2018 Route: ORAL Sig: Take 10 mL by mouth four times daily as needed for up to 7 days. Disposition: Return if symptoms worsen or fail to improve. Follow-up and Disposition History Recorded Encounter Status:Closed by CHEYANNE CLIFFORD on 06/06/18 CR KNEE COMPLETE 4+ Observed: 10/07/2017 Status: F Source: [place] RIGHT 2:36 PM SYSTEM REPOSITORY Patient Name: JEFFREY ASIF II Diagnostic Radiology Exam Date/Time 10/07/2017 14:29:26 EDT Exam CR Knee Complete 4+ Views Right Ordering Physician MAYANK PERSAUD MICHELLE J. Accession Number [id number] CPT4 Codes 77981 () Reason For Exam pain Report EXAMINATION: Right knee: Four views. COMPARISON: None. REASON FOR STUDY: Knee pain. FINDINGS: Osseous structures appear intact and anatomically aligned. No fracture line or periosteal reaction is identified. Soft tissues appear normal. CONCLUSION(S): No radiographic evidence of bone injury, malalignment or arthropathy. Report Dictated on Final Dictated: 10/07/2017 2:36 pm Dictating Physician: MD OCONNOR B NELSON Signed Date and Time: 10/07/2017 2:38 pm Signed by: MD OCONNOR B NELSON Transcribed Date and Time: 10/07/2017 2:36 ALLERGIES ALLERGIES DATE TYPE / CODE NAME / CODE REACTION SEVERITY SOURCE 07/09/2018 Drug No Known Drug Unknown [facility] Allergy/4160 Allergy/M0000 [place] [address](SNOMED 049674(RXNORM Hospital CT) ) Repository 06/24/2018 Drug No Known Unknown [facility] Allergy/4160 Allergies/F00 [facility] [address]223(SNOMED 9439698(RXNOR Repository CT) M) ENCOUNTERS ENCOUNTERS ADMIT/DISCHARGE ACCOUNT NUMBER ADMITTING ENCOUNTER LOCATION SOURCE CLASS 07/09/2018/07/09/20 [id number] Emergency [address] ding:ER Repository 07/04/2018/07/04/20 [id number] Emergency [address] ding:ER Repository 06/24/2018/06/25/20 [id number] Emergency [address] ding:ED Repository 06/23/2018/06/23/20 [id number] Emergency [address] ding:ED Repository 06/10/2018/06/10/20 [id number] Emergency [address] ding:ED Repository 06/06/2018/06/06/20 [id number] Ambulatory [address] Repository 10/07/2017 [id number] [address] [place] [address] ERRoom: System [id number]: Repository [id number] PAYERS PAYERS ENCOUNTER GUARANTOR PAYER SUBSCRIBER SOURCE 07/09/2018 JEFFREY ASIF [id number] Primary JEFFREY [facility], [place] [facility] [address]Fsm: ([phone]) [facility] [id number] Hospital [phone] () PLANPolicy Number: [address] Repository [id number] [place], [place] e Date:[id number] [address] [place] [address]NW: 07/09/2018 Secondary JEFFREY L LAYA [place] Insurance:SELF IIUNK Community PAYPolicy Number: Hospital Effective Repository Date:2018-07-09 07/04/2018 JEFFREY L LAYA II133 Primary JEFFREY L LAYA [place] [address] [place], [place] Insurance:[place] IIDOB: Community [address]Wzv: ([phone]) [facility] [id number] Hospital [phone] (HP) PLANPolicy Number: [address] Repository [id number] [place], [place] e Date:[id number] [address] [place] [address]HE: 07/04/2018 Secondary JEFFREY L LAYA [place] Insurance:SELF IIUNK Community PAYPolicy Number: Hospital Effective Repository Date:2018-07-04 06/24/2018 JEFFREY L LAYA Primary JEFFREY L LAYA [place] [address] Insurance:[place] IIDOB: [address] [id number] Hospital [address]Vpz: ([phone]) PLANPolicy Number: Repository [phone] () [id number] e Date:1218-79-54IO [address] [address]MZ: 06/24/2018 Secondary NOT GIVENUNK [place] Insurance:SELF PAY [facility] Number: Effective Repository Date:2018-06-24 06/23/2018 JEFFREY L LAYA Primary JEFFREY L LAYA [place] [address] Insurance:[place] IIDOB: [address] [id number] Hospital [address]Nvw: ([phone]) PLANPolicy Number: Repository [phone] () [id number] e Date:1166-93-82LP [address] [place] [address] [place] [address]EK: 06/23/2018 Secondary NOT GIVENUNK [place] Insurance:SELF PAY [facility]: Effective Repository Date:2018-06-23 06/10/2018 JEFFREY LAYA Primary JEFFREY LAYA [place] [address] [facility]: [facility] [id number] [address]Wqa: ([phone]) PLANPolicy Number: Repository [phone] () [id number] e Date:[id number] [address] [place] [address]WM: 06/10/2018 Secondary NOT GIVENUNK [place] Insurance:SELF PAY [facility] Number: Effective Repository Date:2018-06-10 10/07/2017 Jeffrey ArauzlDOB: Primary Jeffrey ArauzlDOB: [facility] [id number] Insurance:[id number] Number: Repository [id number]: [phone]) Effective Date: [phone] ()
== END 2018-06-23 03:05 | disposition home or self-care (01) ==
PROVIDERS: Emergency Provider Emergency Medicine
DX: J20.9 Acute bronchitis, unspecified (principal); S29.011A Strain of muscle and tendon of front wall of thorax, initial encounter; X58.XXXA Exposure to other specified factors, initial encounter; Y93.9 Activity, unspecified; Y92.9 Unspecified place or not applicable; Y99.9 Unspecified external cause status; H92.03 Otalgia, bilateral; F17.200 Nicotine dependence, unspecified, uncomplicated
CPT/HCPCS: 96372; 99283

== ENCOUNTER 2018-06-24 23:14 | Emergency (ER) | payer MEDICAID, SELFPAY ==
[2018-06-23 02:07] VITALS: BMI 23.3
[2018-06-24 23:15] VITALS: BP 111/61; PULSE 95; RESP 16; TEMP 36.8; O2SAT 99; BMI 24.5
[2018-06-24 23:57] LABS: Absolute Lymphocyte Count 1.98 X10^3/ul (0.83-4.51); Absolute Neutrophil Count 7.2 X10^3/uL (2.0-7.7); Basophil# 0.06 X10^3/uL; Basophil% 0.5 % (0-1); Differential Indicated SCAN CRITERIA MET; Eosinophils% 1.8 % (0-5); Hematocrit 39.4 % (40-54); Hemoglobin 13.3 g/dl (13.0-16.5); Lymphocyte # 1.98 X10^3/ul (4.0); Lymphocyte % 18.1 % (19-41); Mean Corp Hgb Conc 33.8 g/gl (32-36); Mean Corpuscular Hgb 26.6 pg (27.0-32.0); Mean Corpuscular Volume 78.8 fL (80-94); Mean Platelet Vol. 9.9 fl (6.2-12.0); Monocyte# 1.45 X10^3/uL; Monocyte% 13.3 % (0-10); Neutrophil # 7.21 X10^3/uL (2.7-7.7); POSITIVE COUNT NO; POSITIVE DIFFERENTIAL NO; POSITIVE MORPHOLOGY YES; Platelet Count 285 K/mm3 (150-450); RBC Distribution Width CV 13.7 % (11.6-14.6); White Blood Count 10.9 K/mm3 (4.4-11.0)
[2018-06-24 23:58] LABS: Amphetamine Urine VISTA NEGATIVE (<1000 ng/mL); Barbiturate Urine VISTA NEGATIVE (< 200 ng/mL); Benzodiazepine Urine VISTA NEGATIVE (< 200 ng/mL); Cocaine Urine VISTA NEGATIVE (< 300 ng/mL); Ecstacy Urine VISTA NEGATIVE (< 500 ng/mL); Methadone Urine VISTA NEGATIVE (< 300 ng/mL); PCP Urine VISTA NEGATIVE (< 25 ng/mL); THC Urine VISTA POSITIVE (< 50 ng/mL); Vista UDS pH Range 5
[2018-06-25] VITALS (14 sets, daily range): BP systolic 126–142; BP diastolic 72–89; PULSE 78–106; RESP 13–18; O2SAT 97–100
[2018-06-25 00:05] LABS: Anion Gap 6 (5-15); BUN 12 mg/dL (7-18); BUN/Creat Ratio 19.9 RATIO (10-20); Calcium,Total 8.4 mg/dL (8.5-10.1); Chloride 108 mmol/L (98-107); EST Glomerular Filtration Rate 167 mL/min (>60); Est Glom Filt Rate - Afr Amer 202 mL/min (>60); Estimated Creatinine Clearance 180.02 ml/min; Glucose 81 mg/dL (74-106); Potassium 3.9 mmol/L (3.5-5.1); Sodium Level 141 mmol/L (136-145)
--- NOTE | 2018-06-25 00:26 | ED.RN ---
CALLED [facility] AND THE ULTRASOUND COORDINATOR STATED SHE WILL LET AUGUSTIN KNOW PT NEEDS TO BE SEEN.
--- NOTE | 2018-06-25 00:29 | ED.RN ---
AUGUSTIN CALLED AND STATED SHE IS ON HER WAY TO SEE PT.
--- NOTE | 2018-06-25 01:16 | ED.RN ---
AUGUSTIN FROM [facility] IS HERE.
--- NOTE | 2018-06-25 04:13 | ED.VISSUMM ---
- ER Visit Summary Date of Service: 06/25/18 Chief Complaint: Suicidal History of Present Illness: The patient is a 28 M who presents with suicidal ideation. He is homeless. He states that he was previously staying with someone he had met at [facility]. He has also been at the [facility]. He states that due to some problems with them letting him and he is now homeless over the last 3 weeks. He reports multiple stressors. He reports suicidal ideation. He states 2 days ago he had tied a belt around [place] and intended to hang himself but someone talked him out of it. Physical Examination: Afebrile vitals unremarkable No distress Heart regular rate and rhythm Lungs are clear Abdomen soft Patient endorses suicidal ideation Patient has superficial lacerations of the anterior left forearm which are about 8 cm in length x2 Test Results: CBC BMP hepatic function unremarkable. EKG shows normal sinus rhythm. Alcohol normal. Urine drug screen positive for marijuana. Emergency Department Course and Treatment: Patient evaluated by crisis and will be transferred to the [facility]. Treatment Plan: [] Disposition: Transfer Impression: Suicidal ideation This note was generated with [employer] dictation software. It may contain incorrect words, spelling, and punctuation that were not noted in review of the chart prior to signing ED Disposition - Plan for ED Patient: Chief Complaint: Suicidal Referrals: Care Physician,No Primary [Primary Care Provider] -
--- NOTE | 2018-06-25 04:34 | EKG12_ITS ---
Test Reason : [facility] [place] Blood Pressure : / mmHG Vent. Rate : 103 BPM Atrial Rate : 103 BPM P-R Int : 146 ms QRS Dur : 086 ms QT Int : 332 ms P-R-T Axes : 067 095 059 degrees QTc Int : 434 ms Sinus tachycardia Rightward axis Borderline ECG Confirmed by JENNIFER CARRERO, FRANCES ([id number]), newspaper or periodical editor GARTH DIXON ([id number]) on 06/27/2018 2:29:02 PM Referred By: GABE Confirmed By:FRANCES RODRIGUEZ MD
[2018-06-25 15:15] LABS: AST(SGOT) 24 U/L (15-37); Alanine Aminotransfer ALT/SGPT 28 U/L (16-61); Albumin, Serum 2.9 g/dL (3.2-5.0); Alkaline Phosphatase 61 U/L (45-117); Bilirubin, Direct 0.09 mg/dL (0.00-0.30); Globulin 3.8 g/dL (2.2-4.2); Protein, Total 6.7 g/dL (6.4-8.2)
--- NOTE | 2018-06-25 16:05 | ED.RN ---
PT REPORTS THAT HE WANTS A CIGARETTE, AND HE WANTS TO LEAVE. PT INFORMED THAT HE IS PINK SLIPPED AND CANNOT SMOKE ON HOSPITAL PROPERTY. PT AGITATED, STATES, I DO NOT WANT TO BE HERE ANY MORE, I WAS NOT SUPPOSED TO BE PINK SLIPPED. HRO AT BEDSIDE SPEAKING WITH PT.
[2018-06-25] MEDS: Ibuprofen 600 MG Tablet PO (16:38)
--- NOTE | 2018-06-25 19:39 | ED.RN ---
CALLED [facility] TO FOLLOW UP ON PT GOING TO [facility]. WAITING TO HEAR FROM SERAFIN FROM [facility].
--- NOTE | 2018-06-25 19:44 | ED.RN ---
ADRIANE FROM THE [facility]SELING [facility] STATED THIS PT GOT ACCEPTED AT [facility]. THIS LAND SURVEYOR IS GOING TO ARRANGE TRANSPORT.
--- NOTE | 2018-06-25 20:35 | ED.RN ---
PERSONAL BELONGINGS GIVEN TO EMS CREW
--- NOTE | 2018-06-25 21:16 | ED.RN ---
PT BELONGINGS ARE FOLLOWS, BROWN TRAVEL BAG: BABY POWDER, SHAMPOO/BODY SOAP, Q-TIPS, LISTERINE, TWO TOOTH BRUSHES, NAIL CLIPPERS, AND DEODORANT. BLACK TRAVEL BA T SHIRTS, 2 SWEATERS, 2 BEATERS, 3 PAIRS OF BLACK SANDALS, BIBLE, BINDER WITH PAPERWORK. BLACK TRAVEL BAG: JEANS WITH COTTON BALL MACHINE TENDER, BAG OF SOCKS, CELLPHONE WITH CEMENT SACK BREAKER, PLAID COAT, 4 PENCILS, CIGARETTES, WALLET WITH CREDIT CARDS AND ID. HOODIE, BLACK DRESS SHOES, UNDERWEAR, CEO & CO FOUNDER, PLAID COAT. BELONGINGS TRANSFERRED WITH PT TO [facility].
== END 2018-06-25 20:36 ==
LOC: ED 23:41
PROVIDERS: Emergency Medicine; Emergency Provider Emergency Medicine
DX: F31.9 Bipolar disorder, unspecified (principal); R45.851 Suicidal ideations; S51.812A Laceration without foreign body of left forearm, initial encounter; X58.XXXA Exposure to other specified factors, initial encounter; Y93.9 Activity, unspecified; Y92.9 Unspecified place or not applicable; Y99.9 Unspecified external cause status; R05 Cough; Z79.899 Other long term (current) drug therapy; Z72.0 Tobacco use; Z59.0 Homelessness
CPT/HCPCS: 80048; 80076; 80307; 80320; 85025; 93005; 99285; G0480

== ENCOUNTER 2018-09-11 00:14 | Emergency (ER) | payer MEDICAID, SELFPAY ==
[2018-09-11 00:15] VITALS: BP 143/96; PULSE 117; RESP 19; TEMP 36.9; O2SAT 100; BMI 23.6
--- NOTE | 2018-09-11 00:37 | RAD_ITS ---
HISTORY: Chest Pain EXAM:XR Chest 1 View: Portable COMPARISON: None FINDINGS: EKG leads in place. Normal heart size. Prominent lung volumes. No vascular congestion, pleural effusion, or acute pulmonary infiltration. No pneumothorax. The bony thorax appears intact. RAD/Chest 1 View (Portable) IMPRESSION: No acute cardiopulmonary disease. at 0108 Reported and signed by: Chetan Cedeno MD Electronically Signed: Chetan Cedeno, at 1:07 EST Tel , Service support ,
[2018-09-11] MEDS: hydrOXYzine PAM 25 MG Capsule PO (01:05)
[2018-09-11] MEDS: Ibuprofen 400 MG Tablet 800 MG PO (01:05)
[2018-09-11 01:52] VITALS: PULSE 123; RESP 12; O2SAT 99
--- NOTE | 2018-09-11 02:07 | ED.VISSUMM ---
- ER Visit Summary Date of Service: 09/11/18 Chief Complaint: Pain History of Present Illness: The patient is a 28 M with right side chest pain that has been bothering him on and off for the past year. He reports it is associated with his anxiety. He is out of his BuSpar, Seroquel, trazodone, and Vistaril. He denies any suicidal or homicidal thoughts. Denies any history of heart disease, lung disease, aortic disease. Denies trauma. Denies fever, cough, sputum, or any other associated symptoms. He is currently homeless and [facility] [place] [facility]. He is a smoker. Physical Examination: Afebrile and vital signs unremarkable except for a blood pressure of 143/96 and a heart rate of 117. Alert and oriented. No acute distress. Heart tachycardic but regular. Lungs clear in all doll. Abdomen soft and nontender. Extremities nontender with no edema. Skin appears normal in color. Test Results: EKG showed sinus rhythm at a rate of 123 with a left anterior fascicular block. Chest x-ray showed no acute process. Emergency Department Course and Treatment: Patient presents with anxiety symptoms. He appears anxious. He is not suicidal or homicidal. He does not require hospitalization. Patient was treated with ibuprofen and Vistaril while awaiting results. His workup here was unremarkable. There is no indication for other testing emergently. The patient will be discharged with a refill of his medications. Follow-up as an outpatient or return for any new or worsening issues. Treatment Plan: As above Disposition: Discharge Impression: 1. Chest wall pain 2. Anxiety This note was generated with [employer] software. It may contain incorrect words, spelling, and punctuation that were not noted in review of the chart prior to signing ED Disposition - Plan for ED Patient: Referrals: Care Physician,No Primary [Primary Care Provider] -
--- NOTE | 2018-09-11 02:10 | ED.DEP ---
ED Disposition - Plan for ED Patient: Instructions: ED Chest Pain Atypical Unkn Cause Prescriptions: hydrOXYzine pamoate capsule [Vistaril] 50 mg PO TID PRN PRN #30 cap PRN Reason: Anxiety traZODone [Desyrel] 50 mg PO DAILY #14 tab busPIRone [Buspar] 5 mg PO BID 14 Days #28 tab Quetiapine Fumarate [Seroquel] 50 mg PO BID 14 Days #28 tab Referrals: Care Physician,No Primary [Primary Care Provider] -
--- NOTE | 2018-09-11 02:11 | ED.DCSUM_ITS ---
- ER Visit Summary Date of Service: 09/11/18 Chief Complaint: Pain History of Present Illness: The patient is a 28 M with right side chest pain that has been bothering him on and off for the past year. He reports it is associated with his anxiety. He is out of his BuSpar, Seroquel, trazodone, and Vistaril. He denies any suicidal or homicidal thoughts. Denies any history of heart disease, lung disease, aortic disease. Denies trauma. Denies fever, cough, sputum, or any other associated symptoms. He is currently homeless and [facility] [employer]. He is a smoker. Physical Examination: Afebrile and vital signs unremarkable except for a blood pressure of 143/96 and a heart rate of 117. Alert and oriented. No acute distress. Heart tachycardic but regular. Lungs clear in all doll. Abdomen soft and nontender. Extremities nontender with no edema. Skin appears normal in color. Test Results: EKG showed sinus rhythm at a rate of 123 with a left anterior fascicular block. Chest x-ray showed no acute process. Emergency Department Course and Treatment: Patient presents with anxiety symptoms. He appears anxious. He is not suicidal or homicidal. He does not require hospitalization. Patient was treated with ibuprofen and Vistaril while awaiting results. His workup here was unremarkable. There is no indication for other testing emergently. The patient will be discharged with a refill of his medications. Follow-up as an outpatient or return for any new or worsening issues. Treatment Plan: As above Disposition: Discharge Impression: 1. Chest wall pain 2. Anxiety This note was generated with Sensumation software. It may contain incorrect words, spelling, and punctuation that were not noted in review of the chart prior to signing ED Disposition - Plan for ED Patient: Referrals: Care Physician,No Primary [Primary Care Provider] -
[2018-09-11 02:32] VITALS: BP 130/87; PULSE 124; RESP 16; O2SAT 98
== END 2018-09-11 02:33 | disposition home or self-care (01) ==
LOC: ED 00:43
PROVIDERS: Emergency Provider Emergency Medicine
DX: R07.89 Other chest pain (principal); I44.4 Left anterior fascicular block; Z59.0 Homelessness; F31.9 Bipolar disorder, unspecified; F41.9 Anxiety disorder, unspecified; F90.9 Attention-deficit hyperactivity disorder, unspecified type; F43.10 Post-traumatic stress disorder, unspecified; X58.XXXA Exposure to other specified factors, initial encounter; Y93.9 Activity, unspecified; Y92.9 Unspecified place or not applicable; Y99.9 Unspecified external cause status; F17.200 Nicotine dependence, unspecified, uncomplicated; Z79.899 Other long term (current) drug therapy
CPT/HCPCS: 71045; 99285

== ENCOUNTER 2019-01-24 18:37 | Emergency (ER) | payer MEDICAID, SELFPAY ==
[2018-12-09 13:37] VITALS: BMI 23.6
[2019-01-24 18:38] VITALS: BP 129/77; PULSE 78; RESP 15; TEMP 36.8; O2SAT 98; BMI 27.0
[2019-01-24 19:33] LABS: Absolute Lymphocyte Count 2.47 X10^3/ul (0.83-4.51); Absolute Neutrophil Count 5.8 X10^3/uL (2.0-7.7); Basophil# 0.03 X10^3/uL; Basophil% 0.3 % (0-1); Eosinophil# 0.19 X10^3/uL; Hematocrit 45.5 % (40-54); Hemoglobin 15.5 g/dl (13.0-16.5); Lymphocyte # 2.47 X10^3/ul (4.0); Lymphocyte % 26.6 % (19-41); Mean Corp Hgb Conc 34.1 g/gl (32-36); Mean Corpuscular Hgb 26.2 pg (27.0-32.0); Mean Corpuscular Volume 76.9 fL (80-94); Mean Platelet Vol. 9.8 fl (6.2-12.0); Monocyte# 0.84 X10^3/uL; Neutrophil # 5.75 X10^3/uL (2.7-7.7); Neutrophil % 61.9 % (47-70); Platelet Count 224 K/mm3 (150-450); RBC Distribution Width CV 13.9 % (11.6-14.6); RBC Distribution Width SD 39.3 fl (35.1-43.9); Red Blood Count 5.92 M/mm3 (4.6-6.2); White Blood Count 9.3 K/mm3 (4.4-11.0)
[2019-01-24 19:34] LABS: POSITIVE COUNT NO; POSITIVE DIFFERENTIAL NO; POSITIVE MORPHOLOGY NO
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
[2019-01-24 19:41] VITALS: RESP 16
[2019-01-24] MEDS: LORazepam 1 MG Tablet PO (19:42)
[2019-01-24 19:43] LABS: Anion Gap 4 (5-15); BUN 16 mg/dL (7-18); BUN/Creat Ratio 15.5 RATIO (10-20); Calcium,Total 8.8 mg/dL (8.5-10.1); Chloride 109 mmol/L (98-107); Creatinine, Serum 1.03 mg/dL (0.70-1.30); EST Glomerular Filtration Rate 90 mL/min (>60); Est Glom Filt Rate - Afr Amer 109 mL/min (>60); Estimated Creatinine Clearance 104.87 ml/min; Glucose 96 mg/dL (74-106); Potassium 3.8 mmol/L (3.5-5.1); Sodium Level 139 mmol/L (136-145)
[2019-01-24 19:46] LABS: Amphetamine Urine VISTA NEGATIVE (<1000 ng/mL); Barbiturate Urine VISTA NEGATIVE (< 200 ng/mL); Benzodiazepine Urine VISTA NEGATIVE (< 200 ng/mL); Cocaine Urine VISTA NEGATIVE (< 300 ng/mL); Ecstacy Urine VISTA NEGATIVE (< 500 ng/mL); Methadone Urine VISTA NEGATIVE (< 300 ng/mL); PCP Urine VISTA NEGATIVE (< 25 ng/mL); THC Urine VISTA NEGATIVE (< 50 ng/mL); Vista UDS pH Range 6
[2019-01-24 20:21] LABS: Alcohol, Blood (Medical)-Serum < 3.0 mg/dL
[2019-01-24 20:25] VITALS: RESP 16
--- NOTE | 2019-01-24 21:03 | ED.VIS.GEN ---
History of Present Illness Chief Complaint: Suicidal Informant: Patient, Family Onset: Days Context: Gradual Onset Current Severity: Moderate Maximum Severity: Severe Narrative: Patient presents to the emergency department with increasing anxiety and suicidal ideations. The patient states he is a long-standing history of depression and anxiety. He also has a history of self-injurious behavior. He states over the past few weeks, his anxiety has been worsening. He was trying to attempt to get Social Security and he was denied. He states this is giving him a lot of financial burden. He states he has a daily tension headache. Over the past 2 days, he has been having increasing thoughts of self-harm. He states that he feels like he is not safe at home. He states that he does have plan to cut himself. He is active with the counseling center. Prior similar symptoms: Yes Recent Illness/Hospitalization: No Past Medical History - Allergies and Home Meds Allergies/Adverse Reactions: Allergies No Known Allergies Allergy (Verified 01/24/19 18:46) Primary Care Physician: Ant Kelly MD [Primary Care Provider] - Prior records reviewed: Yes Past Medical History: - - Anxiety, depression, PTSD Smoking Status: Current every day smoker Review of Systems General: Denies: Chills, Fever, Sweats Eyes: Denies: Visual changes - bilaterally, Diplopia ENT: Denies: Rhinorrhea, Sore throat Cardiovascular: Denies: Chest pain, Palpitations Respiratory: Denies: Dyspnea, Cough, Dyspnea on exertion Gastrointestinal: Denies: Abdominal pain, Nausea, Vomiting, Diarrhea, Melena, Hematochezia Genitourinary: Denies: Dysuria, Hematuria, Frequency Musculoskeletal: Denies: Back pain, Extremity Pain Skin: Denies: Rash, Wounds Neurological: Denies: Headache, Weakness, Numbness Psych: Reports: Depression, Anxiety, Suicidal thoughts Endocrine: Denies: Polyuria Hematologic: Denies: Easy bruising Physical Exam Vital Signs/Narrative: Vital Signs Temp Pulse Resp BP Pulse Ox 01/24/19 20:25 16 01/24/19 19:41 16 01/24/19 18:38 98.2 F 78 15 129/77 H 98 Inital Vital Signs reviewed: Yes General: Well nourished, Well developed, No Acute Distress Head: Normocephalic, Atraumatic Eyes: Perrl, EOMI ENT: Moist mucous membranes, No rhinorrhea Neck: Supple, Nontender Cardiovascular: Regular rate, Regular rhythm, No murmurs Respiratory: No distress, CTA bilaterally, Chest nontender Abdomen: Soft, Nontender, Nondistended, Normal bowel sounds Back: Nontender, Normal Inspection Extremities: Nontender, No edema Skin: Normal color, No rash Neurological: Alert, Oriented x3, Cranial nerves II-XII grossly intact, Normal Strength, Normal Sensation Psychological: Normal affect, Depressed, Tearful Diagnostic/Tx/Re-eval Abnormal Lab Results 01/24/19 01/24/19 01/24/19 19:15 19:15 19:15 WBC 9.3 RBC 5.92 Hgb 15.5 Hct 45.5 MCV 76.9 L MCH 26.2 L MCHC 34.1 RDW 13.9 RDW Differential 39.3 Plt Count 224 MPV 9.8 Immature Gran % (Auto) 0.200 Neut % (Auto) 61.9 Lymph % (Auto) 26.6 [place] % (Auto) 9.0 Eos % (Auto) 2.0 Baso % (Auto) 0.3 Absolute Neuts (auto) 5.8 Absolute Lymphs (auto) 2.47 Total Counted Not Reportable Sodium 139 Potassium 3.8 Chloride 109 H Carbon Dioxide 26.0 Anion Gap 4 L BUN 16 Creatinine 1.03 Estim Creat Clear Calc 104.87 Est GFR (MDRD) Af Amer 109 Est GFR (MDRD) Non-Af 90 BUN/Creatinine Ratio 15.5 Glucose 96 Calcium 8.8 Urine Opiates Screen Urine Methadone Screen Ur Barbiturates Screen Ur Phencyclidine Scrn Ur Amphetamines Screen U Methamphetamin-MDMA U Benzodiazepines Scrn Urine Cocaine Screen U Cannabinoids Screen Ur Drug Screen Comment Ethyl Alcohol < 3.0 01/24/19 19:20 WBC RBC Hgb Hct MCV MCH MCHC RDW RDW Differential Plt Count MPV Immature Gran % (Auto) Neut % (Auto) Lymph % (Auto) [place] % (Auto) Eos % (Auto) Baso % (Auto) Absolute Neuts (auto) Absolute Lymphs (auto) Total Counted Sodium Potassium Chloride Carbon Dioxide Anion Gap BUN Creatinine Estim Creat Clear Calc Est GFR (MDRD) Af Amer Est GFR (MDRD) Non-Af BUN/Creatinine Ratio Glucose Calcium Urine Opiates Screen NEGATIVE Urine Methadone Screen NEGATIVE Ur Barbiturates Screen NEGATIVE Ur Phencyclidine Scrn NEGATIVE Ur Amphetamines Screen NEGATIVE U Methamphetamin-MDMA NEGATIVE U Benzodiazepines Scrn NEGATIVE Urine Cocaine Screen NEGATIVE U Cannabinoids Screen NEGATIVE Ur Drug Screen Comment Ethyl Alcohol - Medical Decision Making Patient presents with increasing anxiety and suicidal ideation. He was given oral Ativan with some improvement. Metabolic work-up was unremarkable. With the patient's increasing thoughts of suicide history of self-harm, I do feel benefit from psychiatric hospitalization. At this point he is medically cleared. The patient is agreeable with this plan of care. ED Disposition - Plan for ED Patient: Disposition: Psychiatric Hospital or Unit Diagnosis: Anxiety, Suicidal ideation Referrals: Ant Kelly MD [Primary Care Provider] -
[2019-01-24 21:14] VITALS: RESP 14
[2019-01-24 21:20] VITALS: BP 124/76; PULSE 82; RESP 14; O2SAT 99
--- NOTE | 2019-01-24 22:37 | CM.ED ---
Social Work Telephone call to [facility] for Psychiatry , case is still being reviewed. This licensed social worker updating referral to have the ED contacted with outcome of review due to social work staff end of work day. Continue to be pending referral. Mandy Varghese MSW, LEE
[2019-01-24 23:00] VITALS: RESP 14
[2019-01-25] VITALS: RESP 14
[2019-01-25 01:42] VITALS: BP 100/58; PULSE 87; RESP 16
[2019-01-25 02:28] VITALS: BP 100/58; PULSE 87; RESP 16; O2SAT 98
--- NOTE | 2019-01-25 03:12 | ED.RN ---
[facility] DECLINED TRANSPORT TO [facility].
--- NOTE | 2019-01-25 03:13 | ED.RN ---
[facility] TRANSPORTING THIS PT. ETA OF 0800.
[2019-01-25 04:10] VITALS: RESP 16
[2019-01-25 05:00] VITALS: BP 119/73; PULSE 87; RESP 17; O2SAT 97
[2019-01-25 07:30] VITALS: RESP 14
== END 2019-01-25 07:59 ==
PROVIDERS: Emergency Provider Emergency Medicine; Family Provider Internal Medicine; PCP Internal Medicine
DX: F41.9 Anxiety disorder, unspecified (principal); R45.851 Suicidal ideations; F32.9 Major depressive disorder, single episode, unspecified; F17.200 Nicotine dependence, unspecified, uncomplicated; F43.10 Post-traumatic stress disorder, unspecified; Z91.5 Personal history of self-harm
CPT/HCPCS: 36415; 80048; 80307; 80320; 85025; 99284; G0480

== ENCOUNTER → 2019-02-12 14:45 | Outpatient (CLI) | payer MEDICAID, SELFPAY ==
[2019-02-11 17:58] VITALS: BMI 27.0
[2019-02-12 16:03] LABS: Absolute Neutrophil Count 5.8 X10^3/uL (2.0-7.7); Basophil# 0.05 X10^3/uL; Basophil% 0.6 % (0-1); Eosinophil# 0.09 X10^3/uL; Hematocrit 45.6 % (40-54); Lymphocyte % 24.6 % (19-41); Mean Corp Hgb Conc 32.9 g/dL (32-36); Mean Corpuscular Hgb 25.6 pg (27.0-32.0); Mean Corpuscular Volume 77.8 fL (80-94); Mean Platelet Vol. 10.3 fl (6.2-12.0); Monocyte# 0.78 X10^3/uL; Monocyte% 8.7 % (0-10); NRBC Flagged by Analyzer 0 % (0-5); Neutrophil % 64.8 % (47-70); Platelet Count 235 K/mm3 (150-450); RBC Distribution Width CV 14.3 % (11.6-14.6); RBC Distribution Width SD 39.4 fl (35.1-43.9); Red Blood Count 5.86 M/mm3 (4.6-6.2)
[2019-02-12 16:38] LABS: ALB/GLOB Ratio 1.2 RATIO (0.9-2.4); AST(SGOT) 17 U/L (15-37); Alanine Aminotransfer ALT/SGPT 28 U/L (16-61); Albumin, Serum 3.8 g/dL (3.2-5.0); Alkaline Phosphatase 60 U/L (45-117); Anion Gap 9 (5-15); BUN 12 mg/dL (7-18); BUN/Creat Ratio 9.3 RATIO (10-20); Calcium,Total 8.2 mg/dL (8.5-10.1); Chloride 108 mmol/L (98-107); Creatinine, Serum 1.29 mg/dL (0.70-1.30); EST Glomerular Filtration Rate 69 mL/min (>60); Est Glom Filt Rate - Afr Amer 84 mL/min (>60); Globulin 3.2 g/dL (2.2-4.2); Glucose 102 mg/dL (74-106); Potassium 3.9 mmol/L (3.5-5.1); Sodium Level 141 mmol/L (136-145); T4 Free Direct 1.01 ng/dL (0.76-1.46); Thyroid Stim Hormone (TSH) 0.65 uIU/mL (0.358-3.74)
== END ==
PROVIDERS: Family Provider Internal Medicine; PCP Internal Medicine; Referring Provider Internal Medicine; Visit Provider Internal Medicine
DX: K92.2 Gastrointestinal hemorrhage, unspecified (principal); R00.2 Palpitations; R19.7 Diarrhea, unspecified
CPT/HCPCS: 36415; 80053; 84439; 84443; 85025

== ENCOUNTER → 2019-02-13 11:37 | Outpatient (CLI) | payer MEDICAID, SELFPAY ==
[2019-02-11 17:58] VITALS: BMI 27.0
== END ==
PROVIDERS: Family Provider Internal Medicine; PCP Internal Medicine; Referring Provider Internal Medicine; Visit Provider Internal Medicine
DX: R19.7 Diarrhea, unspecified (principal); K92.1 Melena
CPT/HCPCS: 82274; 83630; 87506

== ENCOUNTER 2019-02-19 01:46 | Emergency (ER) | payer MEDICAID, SELFPAY ==
[2019-02-11 17:58] VITALS: BMI 27.0
[2019-02-19 01:48] VITALS: BP 125/81; PULSE 86; RESP 16; TEMP 36.9; O2SAT 96; BMI 27.4
[2019-02-19 02:13] LABS: Absolute Lymphocyte Count 3.51 X10^3/uL (0.83-4.51); Absolute Neutrophil Count 6.7 X10^3/uL (2.0-7.7); Basophil# 0.05 X10^3/uL; Basophil% 0.4 % (0-1); Eosinophil# 0.21 X10^3/uL; Eosinophils% 1.8 % (0-5); Hematocrit 47.2 % (40-54); Hemoglobin 15.7 g/dL (13.0-16.5); Lymphocyte # 3.51 X10^3/ul (4.0); Lymphocyte % 30.6 % (19-41); Mean Corp Hgb Conc 33.3 g/dL (32-36); Mean Corpuscular Hgb 26.2 pg (27.0-32.0); Mean Corpuscular Volume 78.8 fL (80-94); Mean Platelet Vol. 9.6 fl (6.2-12.0); Monocyte% 8.7 % (0-10); NRBC Flagged by Analyzer 0 % (0-5); Neutrophil # 6.66 X10^3/uL (2.7-7.7); Neutrophil % 58.2 % (47-70); Platelet Count 194 K/mm3 (150-450); RBC Distribution Width CV 13.9 % (11.6-14.6); RBC Distribution Width SD 39.8 fl (35.1-43.9); Red Blood Count 5.99 M/mm3 (4.6-6.2); White Blood Count 11.5 K/mm3 (4.4-11.0)
--- NOTE | 2019-02-19 02:25 | ED.RN ---
per dr amaya pt does not need a sitter.
[2019-02-19 02:26] LABS: Amphetamine Urine VISTA NEGATIVE (<1000 ng/mL); Barbiturate Urine VISTA NEGATIVE (< 200 ng/mL); Benzodiazepine Urine VISTA NEGATIVE (< 200 ng/mL); Cocaine Urine VISTA NEGATIVE (< 300 ng/mL); Ecstacy Urine VISTA POSITIVE (< 500 ng/mL); Methadone Urine VISTA NEGATIVE (< 300 ng/mL); PCP Urine VISTA NEGATIVE (< 25 ng/mL); THC Urine VISTA NEGATIVE (< 50 ng/mL); Vista UDS pH Range 6
[2019-02-19 02:37] LABS: ALB/GLOB Ratio 1.2 RATIO (0.9-2.4); AST(SGOT) 11 U/L (15-37); Alanine Aminotransfer ALT/SGPT 23 U/L (16-61); Albumin, Serum 3.8 g/dL (3.2-5.0); Alkaline Phosphatase 56 U/L (45-117); Anion Gap 4 (5-15); BUN 12 mg/dL (7-18); BUN/Creat Ratio 11.1 RATIO (10-20); Calcium,Total 8.6 mg/dL (8.5-10.1); Chloride 109 mmol/L (98-107); Creatinine, Serum 1.08 mg/dL (0.70-1.30); EST Glomerular Filtration Rate 85 mL/min (>60); Est Glom Filt Rate - Afr Amer 103 mL/min (>60); Estimated Creatinine Clearance 100.01 ml/min; Globulin 3.1 g/dL (2.2-4.2); Glucose 114 mg/dL (74-106); Protein, Total 6.9 g/dL (6.4-8.2); Sodium Level 141 mmol/L (136-145); Thyroid Stim Hormone (TSH) 1.82 uIU/mL (0.358-3.74)
--- NOTE | 2019-02-19 02:38 | EKG12_ITS ---
Test Reason : MHC Blood Pressure : / mmHG Vent. Rate : 077 BPM Atrial Rate : 077 BPM P-R Int : 152 ms QRS Dur : 084 ms QT Int : 372 ms P-R-T Axes : 058 086 049 degrees QTc Int : 420 ms Normal sinus rhythm Normal ECG Confirmed by BANG CARRERO, GAY ([id number]), video editor [place] HARE ([id number]) on 02/19/2019 1:14:03 PM Referred By: AMBER Confirmed By:ARIANE CUENCA MD
--- NOTE | 2019-02-19 02:38 | ED.VIS.PSYCH ---
History of Present Illness Chief Complaint: Suicidal Informant: Patient Narrative: Patient was released from [facility] for psychiatry around 3 weeks ago, he previously was thought to be bipolar but they diagnosed him with schizoaffective disorder, and changed his medication regimen. He agrees that he has had a mood disorder and states that he possibly has been having auditory hallucinations recently. He says that he has been very frustrated over the past several weeks, the fact that he is functioning at a very low level. He feels like I am always in my head and has no energy or motivation to do simple tasks such as activities of daily living, cleaning up the dishes, doing the laundry, etc. States he did have a couple of good days a couple days ago, but this past day he has felt very bad and felt like I do not want to live. He is having suicidal thoughts but not active intent or plan to harm himself. He feels like he is getting worse. He has the feeling that talking with counselors and psychiatrist and other doctors and trying different medications for all of this, that none of this is helping. He feels hopeless. - Past Medical History (1) Schizoaffective disorder Status: Chronic (2) History of migraine headaches Status: Chronic (3) Depression with anxiety Status: Chronic (4) Insomnia Status: Chronic Past Medical History - Allergies and Home Meds Allergies/Adverse Reactions: Allergies No Known Allergies Allergy (Verified 02/19/19 01:56) Primary Care Physician: Ant Kelly MD [Primary Care Provider] - Lives: Spouse/ Significant Other - Girlfriend Smoking Status: Current every day smoker Drugs: Cocaine - Remotely, not recent, - - Methamphetamine but states has been clean for 3 weeks Review of Systems General: Denies: Chills, Fever, Sweats Eyes: Denies: Visual changes - bilaterally, Diplopia ENT: Denies: Rhinorrhea, Sore throat Cardiovascular: Reports: Chest pain - Intermittent right upper chest since last year, worse with anxiety/panic. Denies: Palpitations Respiratory: Denies: Dyspnea, Cough, Dyspnea on exertion Gastrointestinal: Denies: Abdominal pain, Nausea, Vomiting, Diarrhea, Melena, Hematochezia Genitourinary: Denies: Dysuria, Hematuria, Frequency Musculoskeletal: Denies: Back pain, Extremity Pain Skin: Denies: Rash, Wounds Neurological: Denies: Headache, Weakness, Numbness Psych: Reports: Depression, Anxiety, Suicidal thoughts. Denies: Suicidal ideations Physical Exam Vital Signs/Narrative: Vital Signs Temp Pulse Resp BP Pulse Ox 02/19/19 01:48 98.4 F 86 16 125/81 H 96 Inital Vital Signs reviewed: Yes General: Well nourished, Well developed Head: Normocephalic, Atraumatic Eyes: Perrl, EOMI ENT: Moist mucous membranes, No rhinorrhea Neck: Supple, Nontender Cardiovascular: Regular rate, Regular rhythm, No murmurs, Normal S1, Normal S2 Respiratory: No distress, CTA bilaterally, Chest tenderness - Mild right upper chest, subclavicular Abdomen: Soft, Nontender, Nondistended, Normal bowel sounds Back: Nontender, Normal Inspection Extremities: Nontender, No Edema Skin: Normal color, No rash, No Trauma Neurological: Alert, Oriented x3, Cranial nerves II-XII grossly intact, Normal Strength, Normal Sensation Psych: Normal Speech Pattern, Logical sequential goal directed thoughts, Normal Stable Appropriate Affect, Good Insight, Suicidal thoughts, Hallucinations - Not acting out on any on exam. Negative for: Homicidal thoughts Diagnostic/Tx/Re-eval Laboratory Results 02/19/19 02/19/19 02/19/19 02:05 02:05 02:05 WBC 11.5 H RBC 5.99 Hgb 15.7 Hct 47.2 MCV 78.8 L MCH 26.2 L MCHC 33.3 RDW Std Deviation 39.8 RDW Coeff of Chrissy 13.9 Plt Count 194 MPV 9.6 Immature Gran % (Auto) 0.300 Neut % (Auto) 58.2 Lymph % (Auto) 30.6 [place] % (Auto) 8.7 Eos % (Auto) 1.8 Baso % (Auto) 0.4 Absolute Neuts (auto) 6.7 Absolute Lymphs (auto) 3.51 Nucleated RBC % 0 Sodium 141 Potassium 4.0 Chloride 109 H Carbon Dioxide 28.0 Anion Gap 4 L BUN 12 Creatinine 1.08 Estim Creat Clear Calc 100.01 Est GFR (MDRD) Af Amer 103 Est GFR (MDRD) Non-Af 85 BUN/Creatinine Ratio 11.1 Glucose 114 H Calcium 8.6 Total Bilirubin 0.50 AST 11 L ALT 23 Alkaline Phosphatase 56 Troponin I Total Protein 6.9 Albumin 3.8 Globulin 3.1 Albumin/Globulin Ratio 1.2 TSH 1.82 Urine Opiates Screen Urine Methadone Screen Ur Barbiturates Screen Ur Phencyclidine Scrn Ur Amphetamines Screen U Methamphetamin-MDMA U Benzodiazepines Scrn Urine Cocaine Screen U Cannabinoids Screen Ur Drug Screen Comment Ethyl Alcohol 10.0 02/19/19 02/19/19 02:05 02:05 WBC RBC Hgb Hct MCV MCH MCHC RDW Std Deviation RDW Coeff of Chrissy Plt Count MPV Immature Gran % (Auto) Neut % (Auto) Lymph % (Auto) [place] % (Auto) Eos % (Auto) Baso % (Auto) Absolute Neuts (auto) Absolute Lymphs (auto) Nucleated RBC % Sodium Potassium Chloride Carbon Dioxide Anion Gap BUN Creatinine Estim Creat Clear Calc Est GFR (MDRD) Af Amer Est GFR (MDRD) Non-Af BUN/Creatinine Ratio Glucose Calcium Total Bilirubin AST ALT Alkaline Phosphatase Troponin I < 0.015 Total Protein Albumin Globulin Albumin/Globulin Ratio TSH Urine Opiates Screen NEGATIVE Urine Methadone Screen NEGATIVE Ur Barbiturates Screen NEGATIVE Ur Phencyclidine Scrn NEGATIVE Ur Amphetamines Screen NEGATIVE U Methamphetamin-MDMA POSITIVE H U Benzodiazepines Scrn NEGATIVE Urine Cocaine Screen NEGATIVE U Cannabinoids Screen NEGATIVE Ur Drug Screen Comment Ethyl Alcohol - Rhythm Strip Rhythm Strip: Sinus Rhythm Rate: 65 Ectopy: None - EKG Initial EKG Interpretation: Sinus Rhythm, No Acute Injury Pattern - Normal EKG Prior: Unchanged EKG was obtained although he is not currently having chest discomfort, it is normal. His troponin is also normal. The rest of his labs are only remarkable for positive methamphetamine test which she agreed to using in the recent past several weeks ago but none since. He is medically cleared for psychiatric evaluation, crisis is contacted to further evaluate. Crisis evaluated, the patient feels much better after speaking with the crisis counselor, and prefers to go home. He contracts for safety. The counselor is comfortable with this, furthermore, he has an appointment with the counseling center later today. I think this is reasonable, the patient is reasonable and insightful, and I do not think is actively suicidal. ED Disposition - Plan for ED Patient: Disposition: Home or Assisted Living Diagnosis: Suicidal thoughts, Schizoaffective disorder Instructions: CONTRACT, No Harm, Understanding Schizoaffective Disorder Referrals: Ant Kelly MD [Primary Care Provider] - Counseling,Center [GROUP OF PHYSICIANS] - Keep Angelica appointment
--- NOTE | 2019-02-19 03:01 | ED.RN ---
CALLED THE COUNSELING CENTER. NOTIFIED THE SALESFORCE ADMINISTRATOR THAT THIS PT IS READY TO BE EVALUATED BY CRISIS.
--- NOTE | 2019-02-19 03:04 | ED.RN ---
ADRIANE FROM [facility] IS ON HER WAY TO EVALUATE THIS PT.
--- NOTE | 2019-02-19 03:34 | ED.RN ---
ADRIANE FROM [facility] IS HERE.
[2019-02-19 04:41] VITALS: RESP 16
[2019-02-19 05:05] VITALS: BP 126/60; PULSE 82; RESP 16; O2SAT 98
== END 2019-02-19 05:06 | disposition home or self-care (01) ==
PROVIDERS: Emergency Provider Emergency Medicine; Family Provider Internal Medicine; PCP Internal Medicine
DX: F25.9 Schizoaffective disorder, unspecified (principal); R45.851 Suicidal ideations; F32.9 Major depressive disorder, single episode, unspecified; F41.9 Anxiety disorder, unspecified; G47.00 Insomnia, unspecified; F17.200 Nicotine dependence, unspecified, uncomplicated; Z79.899 Other long term (current) drug therapy
CPT/HCPCS: 36415; 80053; 80307; 80320; 84443; 84484; 85025; 93005; 99283; G0480

== ENCOUNTER 2019-03-05 08:32 | Emergency (ER) | payer MEDICAID, SELFPAY ==
[2019-03-05 08:33] VITALS: BP 130/75; PULSE 101; RESP 18; TEMP 36.7; O2SAT 93; BMI 25.8
--- NOTE | 2019-03-05 08:59 | ED.VIS.GEN ---
History of Present Illness Chief Complaint: Suicidal Informant: Patient Onset: Today Current Severity: Moderate Maximum Severity: Moderate Narrative: Patient apparently was on a methamphetamine binge for the past 3 days. He has been sleeping at random houses, now he tells me that he has messed up his life and wants to . He does not have a plan. He tells me he has a history of schizoaffective disorder, he has auditory hallucinations and thinks there is someone out to get him. He arrives to the emergency department on his own. Past Medical History - Allergies and Home Meds Allergies/Adverse Reactions: Allergies No Known Allergies Allergy (Verified 03/05/19 08:36) Primary Care Physician: Ant Kelly MD [Primary Care Provider] - Past Medical History: - - Schizoaffective disorder Surgical History: no surgical history Smoking Status: Current every day smoker Drugs: - - Multidrug use, recent methamphetamine use Review of Systems All systems negative except as indicated General: Denies: Fever Eyes: Denies: Visual changes - bilaterally Cardiovascular: Denies: Chest pain Respiratory: Denies: Dyspnea Gastrointestinal: Denies: Abdominal pain, Nausea Genitourinary: Denies: Dysuria Musculoskeletal: Denies: Myalgias, Neck pain Skin: Denies: Rash Neurological: Denies: Weakness Psych: Reports: Depression, Anxiety, Suicidal thoughts Physical Exam Vital Signs/Narrative: Vital Signs Temp Pulse Resp BP Pulse Ox 03/05/19 08:33 98.1 F 101 H 18 130/75 H 93 General: Well nourished, Well developed Head: Normocephalic, Atraumatic Eyes: Perrl ENT: Moist mucous membranes Cardiovascular: Regular rate Respiratory: No distress, CTA bilaterally Abdomen: Soft, Nontender Back: Nontender, Normal Inspection Extremities: Nontender, No edema Skin: Normal color Neurological: Alert, Oriented x3, Normal Strength Psychological: - - Pressured speech, he does have delusions. He admits to suicidal ideations. Diagnostic/Tx/Re-eval - Medical Decision Making Patient will be medically cleared, he will be evaluated for psychiatric transfer. At this time he has no plan but he still has ideations. If this changes we will readdress. He is medically stable. Plan is to transfer to psychiatric facility ED Disposition - Plan for ED Patient: Disposition: Psychiatric Hospital or Unit Diagnosis: Drug abuse, Schizoaffective disorder, Suicidal ideation Referrals: Ant Kelly MD [Primary Care Provider] -
[2019-03-05 09:45] LABS: Amphetamine Urine VISTA POSITIVE (<1000 ng/mL); Barbiturate Urine VISTA NEGATIVE (< 200 ng/mL); Benzodiazepine Urine VISTA NEGATIVE (< 200 ng/mL); Cocaine Urine VISTA NEGATIVE (< 300 ng/mL); Ecstacy Urine VISTA POSITIVE (< 500 ng/mL); Methadone Urine VISTA NEGATIVE (< 300 ng/mL); PCP Urine VISTA NEGATIVE (< 25 ng/mL); THC Urine VISTA NEGATIVE (< 50 ng/mL); Vista UDS pH Range 5
[2019-03-05 09:48] LABS: Absolute Neutrophil Count 12.9 X10^3/uL (2.0-7.7); Basophil# 0.07 X10^3/uL; Basophil% 0.4 % (0-1); Eosinophil# 0.11 X10^3/uL; Eosinophils% 0.7 % (0-5); Hematocrit 44.9 % (40-54); Hemoglobin 14.6 g/dL (13.0-16.5); Mean Corp Hgb Conc 32.5 g/dL (32-36); Mean Corpuscular Hgb 25.8 pg (27.0-32.0); Mean Corpuscular Volume 79.3 fL (80-94); Mean Platelet Vol. 10.5 fl (6.2-12.0); Monocyte# 2.06 X10^3/uL; Monocyte% 12.3 % (0-10); NRBC Flagged by Analyzer 0 % (0-5); Neutrophil # 12.86 X10^3/uL (2.7-7.7); Neutrophil % 76.9 % (47-70); POSITIVE DIFFERENTIAL YES; Platelet Count 222 K/mm3 (150-450); RBC Distribution Width CV 13.5 % (11.6-14.6); RBC Distribution Width SD 39.2 fl (35.1-43.9); Red Blood Count 5.66 M/mm3 (4.6-6.2); White Blood Count 16.7 K/mm3 (4.4-11.0)
[2019-03-05 09:52] LABS: Differential Indicated SCAN CRITERIA MET
[2019-03-05 09:56] LABS: Anion Gap 6 (5-15); BUN 30 mg/dL (7-18); BUN/Creat Ratio 25.6 RATIO (10-20); Chloride 101 mmol/L (98-107); Creatinine, Serum 1.17 mg/dL (0.70-1.30); EST Glomerular Filtration Rate 77 mL/min (>60); Est Glom Filt Rate - Afr Amer 94 mL/min (>60); Estimated Creatinine Clearance 95.32 ml/min; Glucose 70 mg/dL (74-106); Potassium 3.4 mmol/L (3.5-5.1); Sodium Level 137 mmol/L (136-145)
[2019-03-05] MEDS: LORazepam 2 MG/ML Syringe 1 MG IM (10:03)
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
[2019-03-05 11:23] VITALS: RESP 16
[2019-03-05 13:33] VITALS: BP 122/77; PULSE 100; RESP 14; O2SAT 97
[2019-03-05 13:37] VITALS: BP 122/77; PULSE 100; RESP 14; O2SAT 97
[2019-03-05 14:42] LABS: Pathologist Review Reviewed
--- NOTE | 2019-03-05 16:15 | CM.ED ---
Social Work Patient accepted at [facility]. Updated patient and medical team. All agreeable to plan. [place] faxed. Mandy Varghese TRAVEL CONSULTANT, LEE
== END 2019-03-05 14:14 ==
LOC: ED 09:21
PROVIDERS: Emergency Provider Emergency Medicine; Family Provider Internal Medicine; PCP Internal Medicine
DX: F15.10 Other stimulant abuse, uncomplicated (principal); F25.9 Schizoaffective disorder, unspecified; R45.851 Suicidal ideations; F32.9 Major depressive disorder, single episode, unspecified; F41.9 Anxiety disorder, unspecified; F17.200 Nicotine dependence, unspecified, uncomplicated; Z79.899 Other long term (current) drug therapy
CPT/HCPCS: 80048; 80307; 80320; 85025; 96372; 99284; G0480

== ENCOUNTER 2019-04-22 19:07 | Emergency (ER) | payer MEDICAID, SELFPAY ==
[2019-03-19 14:59] VITALS: BMI 25.8
[2019-04-22 19:08] VITALS: BP 143/92; PULSE 125; RESP 19; TEMP 36.1; O2SAT 99; BMI 25.8
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
[2019-04-22] MEDS: LORazepam 1 MG Tablet 2 MG PO (19:56)
--- NOTE | 2019-04-22 20:42 | ED.RN ---
PT GETTING TRANSFERRED RIDE ARRIVED AND THE PT GOT UP AND LEFT. SECURITY FOLLOWED THE PT OUT, PD WAS CALLED AND BROUGHT THE PT BACK. PT NOW SAYS HE WILL BE TRANSPORTED HE WAS JUST AFRAID I WAS GOING TO THE PLACE WHERE I BROKE MY SHOULDER. PT MOVED TO ROOM 4 FOR OBSERVATION. [facility] WAS CALLED BACK FOR TRANSPORT WHICH THEY DECLINED STATING THE PT IS A FLIGHT RISK. WILL CONTINUE TO MONITOR THE PT, PT RESTING IN A POSITION OF COMFORT WITH HIS EYES CLOSED. DR. ESTRADA MADE AWARE.
[2019-04-22 21:08] VITALS: RESP 17
--- NOTE | 2019-04-22 21:08 | ED.RN ---
SPOKE WITH ABOUT PT SITUATION, PT STATED THAT I FEEL LIKE PEOPLE ARE OUT TO GET ME, I HAVEN'T SLEPT IN THREE DAYS. ART THERAPIST ALSO MADE AWARE OF THE SITUATION. NO FURTHER ORDERS AT THIS TIME. WILL CONTINUE TO MONITOR THE PT.
--- NOTE | 2019-04-22 21:30 | CM.ED ---
Addendum entered by Thuy Dalton 04/22/19 21:49: REVIEWED ASSESSMENT BY [employer] FROM 03/05/19. PATIENT REPORTED TO BE HOMELESS. CONTACTED THE [facility] TO CHECK ON BED FOR PATIENT. PER HEALTH SERVICES MANAGER, PATIENT HAS USED HIS TWO VISITS FOR THIS YEAR. UNABLE TO RETURN UNTIL JULY. Original Note: SOCIAL WORK CASE DISCUSSED WITH NURSE AND DR. ESTRADA. PATIENT PRESENTED WITH ANXIETY/PANIC ATTACK, OUT OF MEDICATIONS. DR. ESTRADA DOES NOT FEEL PATIENT REQUIRES PLACEMENT AT THIS TIME. THIS WORKER TO PATIENT'S ROOM TO DISCUSS NEEDS. PATIENT SLEEPING. ATTEMPTED TO WAKE PATIENT UP. PATIENT WOULD OPEN EYES FOR A SECOND AND GO BACK TO SLEEP. UNABLE TO ASSESS FOR NEEDS AT THIS TIME. THUY DALTON, FITTING ROOM CHECKER, LONG TERM CARE ADMINISTRATOR.
--- NOTE | 2019-04-22 22:08 | ED.DEP ---
ED Disposition - Plan for ED Patient: Disposition: Home or Assisted Living Instructions: Panic Attack Referrals: Ant Kelly MD [Primary Care Provider] - As soon as possible Counseling,Center [GROUP OF PHYSICIANS] - As soon as possible Additional Instructions: Follow-up with your primary care physician or the counseling center.
[2019-04-22 22:19] VITALS: BP 118/57; PULSE 98; RESP 16; O2SAT 98
--- NOTE | 2019-04-22 22:28 | ED.RN ---
Addendum entered by Kristy Umanzor 04/22/19 22:36: HRO TO BEDSIDE. Original Note: RN INTO DISCHARGE PATIENT. PATIENT REFUSING TO GET DRESSED AND LEAVE.
== END 2019-04-22 22:36 | disposition home or self-care (01) ==
PROVIDERS: Emergency Provider Emergency Medicine; Family Provider Internal Medicine; PCP Internal Medicine
DX: F41.0 Panic disorder [episodic paroxysmal anxiety] (principal); F41.9 Anxiety disorder, unspecified; F25.9 Schizoaffective disorder, unspecified; F43.10 Post-traumatic stress disorder, unspecified; F15.10 Other stimulant abuse, uncomplicated; Z72.0 Tobacco use; Z79.899 Other long term (current) drug therapy
CPT/HCPCS: 99284